=== PATIENT | female | born 1940 | race Caucasian/White ===

== ENCOUNTER 2022-01-02 15:17 | Inpatient (IN) | payer OTHER, MEDICARE, SELFPAY ==
[2022-01-02] VITALS (8 sets, daily range): BP systolic 119–193; BP diastolic 63–84; PULSE 76–94; RESP 16–24; TEMP 36.2–36.7; O2SAT 94–100; BMI 23.9; BMI 24.6
--- NOTE | 2022-01-02 15:55 | CRLHL7_ITS ---
For Patients: As a result of the Century Cures Act, medical imaging exams and procedure reports are released immediately into your electronic medical record. You may view this report before your referring provider. If you have questions, please contact your health care provider. HISTORY: Fall. Left hip pain. TECHNIQUE: AP pelvis and lateral view left hip. COMPARISON: No prior. FINDINGS: On the lateral film, there appears to be a dorsally impacted fracture of the left femoral head-neck junction. This is not definitively confirmed on the AP pelvis view, however. There is no significant hip joint space narrowing. Degenerative changes of the sacroiliac joints and within the lower lumbar spine. Vascular calcifications. IMPRESSION: On the lateral view, there appears to be a displaced / impacted fracture of the left femoral head-neck junction though this is not definitively confirmed on the AP pelvic view. If clinical exam findings are equivocal, a CT could be obtained for further evaluation. Dictated by Ac Clark MD @ 01/02/2022 5:40:57 PM Dictated by: Ac Clark MD @ 01/02/2022 17:41:04 (Electronically Signed)
--- NOTE | 2022-01-02 15:55 | CRLHL7_ITS ---
For Patients: As a result of the Cures Act, medical imaging exams and procedure reports are released immediately into your electronic medical record. You may view this report before your referring provider. If you have questions, please contact your health care provider. HISTORY: Fall. TECHNIQUE: Three views of the left wrist. COMPARISON: No prior. FINDINGS: There is an acute dorsally impacted fracture of the distal left radius with resultant dorsal tilt of distal articular surface. Fracture likely subtly extends to the distal articular surface where there is minimal displacement. No acute distal ulnar fracture. 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 IMPRESSION: Acute dorsally impacted fracture of the distal left radius with dorsal tilt of the distal articular surface. Dictated by Ac Clark MD @ 01/02/2022 5:38:08 PM Dictated by: Ac Clark MD @ 01/02/2022 17:38:10 (Electronically Signed)
--- NOTE | 2022-01-02 16:19 | ED.FALL ---
HPI - Fall General Chief Complaint: Fall/Minor Trauma Stated Complaint: Leg cramping Time Seen by Provider: 01/02/22 15:24 Source: patient and family Limitations: no limitations History of Present Illness HPI Narrative: Patient presents with her daughter after a witnessed fall on a curb. Fall was from standing height onto the sidewalk, landing on her outstretched left wrist and then left hip, she did lightly hit her head on the ground but denies any loss of consciousness or neurological change. She has ongoing issues with cramps in her legs which she states have been worked up by multiple specialists. She states that these cramps frequently and when the cramps today, it caused her to lose her footing suddenly and fall. She notes no neurological change. There have been no fevers, no recent signs of illness. She states that the pain is located in the posterior left hip and is constant. She cannot bear weight or ambulate on it. Pain in the left wrist is at the ulnar styloid area, no prior history of fracture to these areas. Has not tried taking any medication to help with her symptoms. Denies any cardiac symptoms, no chest pain, no dyspnea contributing to her symptoms. She is prone to urinary tract infections but takes Keflex prophylactically, denies any dizziness or symptoms of current infection. She is a type 1 diabetic, denying any hypoglycemia. Reports good compliance with her insulin as well. She has a notable history of coronary artery disease having had stents placed in March of this past year. No recent complications. She does take Plavix and denies any missed doses but no other anticoagulant. There are no recent provider notes to review. She states her past medical history is most notable for diabetes, hypertension, coronary artery disease and recurrent UTI. Medications reviewed, Plavix, Basaglar insulin and Humalog, amlodipine and daily Keflex for UTI prophylaxis. Surgical history is notable for coronary stent placement. Socially, she denies any other pertinent travel or illness exposure. Related Data Home Medications Medication Instructions Recorded Confirmed cephalexin .ROUTE 01/02/22 clopidogrel 75 mg tablet (Plavix) 75 mg PO DAILY 01/02/22 01/02/22 insulin lispro .ROUTE 01/02/22 Allergies Allergy/AdvReac Type Severity Reaction Status Date / Time Sulfa (Sulfonamide Allergy Intermediate Hives Verified 01/02/22 15:33 Antibiotics) Review of Systems Narrative: R was notable for the musculoskeletal symptoms as described above. Otherwise denies any other generalized, cardiovascular, respiratory, GI, urinary, skin, neurological or mental health changes. [facility] Medical History CAD (coronary artery disease) Diabetes mellitus type 1 Hypertension Surgical History S/P arterial stent Social History Smoking Status: Never smoker Do you use any of these nicotine containing products: None Second hand tobacco smoke exposure: No How often do you have a drink containing alcohol: never AUDIT-C Alcohol total score: 0 Non-prescribed substance use: denies use Exam Const: Vital Signs, click to edit/add: Vital Signs - 24 hr 01/02/22 15:26 01/02/22 16:30 01/02/22 17:04 Temperature 97.1 F L Pulse Rate [Pulse Oximeter] 76 94 77 Respiratory Rate 18 22 24 Blood Pressure [Ri ght Upper Arm] 155/63 H 119/72 169/67 H Pulse Oximetry 100 94 99 Oxygen Delivery Me thod Room Air Room Air Documenting provider has reviewed patient's vital signs: yes Common normals: no apparent distress and alert General appearance: cooperative and well kempt Orientation/consciousness: Yes awake HENMT: Common normals: normocephalic, head/scalp atraumatic and hearing grossly normal bilaterally Head and scalp: normocephalic and atraumatic Mouth: oral and palatal mucosa normal Throat: posterior oropharynx normal Eye: Common normals: EOMs intact bilaterally, conjunctivae normal and no scleral icterus General eye: normal appearance of both eyes Conjunctiva: conjunctiva(e) normal Neck & C-Spine: Common normals: full ROM and no lymphadenopathy Resp: Common normals: normal respiratory effort and clear to auscultation bilaterally Auscultation: clear to auscultation bilaterally Cardio: Common normals: regular rate, regular rhythm, S1 normal heart sound and peripheral pulses 2+ throughout Rate: regular rate Rhythm: regular rhythm Heart sounds: S1 normal Peripheral pulses: pulses 2+ throughout GI: Common normals: Normal to inspection, nondistended, normoactive bowel sounds present, soft to palpation, non-tender and no hepatosplenomegaly Palpation: soft and no hepatosplenomegaly : Other: No tenderness to palpation of the pelvis. Back & Pelvis: Other: Tenderness to palpation of external hip. No shortening or abnormal rotation of leg. The left wrist is tender to palpation with swelling at the distal radius. No significant deformity. Good radial pulses with normal capillary refill in the fingers. Can move all fingers on the left side with no difficulty. Neuro: Sensorium/orientation: awake and alert Speech: speech normal Motor exam: no tremor noted Psych: Common normals: speech normal Appearance: well kempt Attitude: engaged Activity/motor behavior: appropriate eye contact Speech: normal speech Mood and affect: anxious (, mild but with good insight.) Memory/cognition: memory grossly intact Skin: Narrative: Chronic appearing bruising to left foot and ankle, family agrees that this is chronic. No open lacerations. Course Vital Signs Vital signs: Initial Vital Signs Temperature 97.1 F L 01/02/22 15:26 Temperature Source Temporal Artery Scan 01/02/22 15:26 Pulse Rate 76 01/02/22 15:26 Respiratory Rate 18 01/02/22 15:26 Blood Pressure 155/63 H 01/02/22 15:26 Blood Pressure Mean 93 01/02/22 15:26 Pulse Oximetry 100 01/02/22 15:26 Oxygen Delivery Method 01/02/22 15:26 Vital Signs Temperature 97.1 F L 01/02/22 15:26 Pulse Rate 76 01/02/22 15:26 Respiratory Rate 18 01/02/22 15:26 Blood Pressure 155/63 H 01/02/22 15:26 Pulse Oximetry 100 01/02/22 15:26 Oxygen Delivery Method 01/02/22 15:26 Temperature 97.1 F L 01/02/22 15:26 Pulse Rate 77 01/02/22 17:04 Respiratory Rate 24 01/02/22 17:04 Blood Pressure 169/67 H 01/02/22 17:04 Pulse Oximetry 99 01/02/22 17:04 Oxygen Delivery Method 01/02/22 17:04 MDM - Fall MDM Narrative Medical decision making narrative: Family is very fixated on her chronic muscle cramps, but I am concerned that there is a greater underlying pathology causing her distress today. She was initially given hydrocodone for pain, this did not get her better quickly enough for the family's liking and she was given 0.2 of Dilaudid. They requested a muscle relaxer, I discussed the risks and benefits of each extensively and how often the side effects are more bothersome than the muscle cramps, they would like to try this. A trial of 5 mg of Flexeril is ordered. Her pain really seems under proportion to clinical exam. I do examine the x-ray and there was certainly a fracture of the left wrist but there is also something possibly impacted on the left hip. I recommend a CT scan. The family was in agreement to this though they would like to focus more on the leg cramps. She has some mild hyponatremia that I suspect is chronic and ongoing, is not taking a thiazide I do not think that it is contributing to her symptoms today. CT scan of the pelvis does show an impacted left hip fracture. Will be contacting orthopedic team. Update 7:00 p.m.: Splint applied to left upper extremity due to fractured wrist. Well tolerated. Admission discuss due to hip fracture, may benefit from surgical intervention. Unable to ambulate, will need PT, OT and disposition plan, but would likely benefit from surgery. Orthopedic team agreeable to admission and consult in morning. Dr. Oneal and accepting of admission. Will give additional dose of hydrocodone prior to transport. Medical Records Attestation: I reviewed the patient's medical records. Lab Data Attestation: I reviewed the patient's lab results. Lab results narrative: Mild hyponatremia likely secondary to hyperglycemia, had recent corticosteroid injection in shoulder Labs: Lab Results 01/02/22 01/02/22 01/02/22 Range/Units 16:11 16:11 16:11 WBC 11.05 H (4.50-11.00) K/uL RBC 3.92 L (4.00-5.20) m/uL Hgb 12.4 (12.0-16.0) gm/dL Hct 37.0 (33.0-51.0) % MCV 94 (80-100) fL MCH 32 (26-34) pg MCHC 34 (32-36) gm/dL RDW Coeff of Mehran 14.8 (11.5-15.5) % Plt Count 184 (140-440) K/uL Neut % (Auto) 80.9 H (42.0-72.0) % Lymph % (Auto) 10.8 L (20-44) % Gosper % (Auto) 7.4 (0.0-11.0) % Eos % (Auto) 0.0 (0.0-7.0) % Baso % (Auto) 0.1 (0.0-3.0) % Neut # (Auto) 8.90 H (1.7-7.0) K/uL Lymph # (Auto) 1.20 (0.90-2.90) K/uL Gosper # (Auto) 0.80 (0.00-0.90) K/UL Eos # (Auto) 0.00 (0.00-0.50) K/uL Baso # (Auto) 0.00 (0.00-0.30) K/uL Abs Immat Gran (auto) 0.09 (0.00-0.30) K/uL Sodium 132 L (135-149) mmol/L Potassium 3.7 (3.6-5.1) mmol/L Chloride 99 (96-114) mmol/L Carbon Dioxide 23 (20-32) mmol/L BUN 21 (7-30) mg/dL Creatinine 1.0 (0.5-1.5) mg/dL Estimated Creat Clear 41.45 Estimated GFR 56 ml/min Glucose 169 H (60-115) mg/dL Calcium 9.7 (8.4-10.6) mg/dL Magnesium 1.8 (1.5-2.6) mg/dL POC Troponin I 0.01 (0.01-0.04) ng/ml Discharge Plan Discharge Clinical Impression: Closed left hip fracture, Fracture of wrist Patient Disposition: Admitted As Inpatient Prescriptions: No Action cephalexin [Keflex] .ROUTE insulin lispro [Humalog U-100 Insulin] .ROUTE clopidogrel [Plavix] 75 mg tablet 75 mg PO DAILY Follow Up/Referrals: Provider,Not a Local [Primary Care Provider] -
[2022-01-02 16:25] LABS: Basophils Percent Auto 0.1 % (0.0-3.0); Hemoglobin* 12.4 gm/dL (12.0-16.0); Immature Granulocytes Abs Auto 0.09 K/uL (0.00-0.30); Lymphocytes Percent Auto 10.8 % (20-44); Mean Corpuscular HGB Conc 34 gm/dL (32-36); Mean Corpuscular Hemoglobin 32 pg (26-34); Mean Corpuscular Volume 94 fL (80-100); Monocytes Percent Auto 7.4 % (0.0-11.0); Neutrophils Percent Auto 80.9 % (42.0-72.0); Platelet Count* 184 K/uL (140-440); RDW Coefficient of Variation % 14.8 % (11.5-15.5); Red Blood Count 3.92 m/uL (4.00-5.20); White Blood Count* 11.05 K/uL (4.50-11.00)
[2022-01-02 16:29] LABS: Slide Review Reflex No
[2022-01-02] MEDS: HYDROCODONE-ACETAMIN 5-325 MG 1 TAB PO ×2 (16:43→19:28)
[2022-01-02 16:46] LABS: Chloride* 99 mmol/L (96-114); Potassium* 3.7 mmol/L (3.6-5.1); Sodium* 132 mmol/L (135-149)
[2022-01-02 16:49] LABS: Blood Urea Nitrogen* 21 mg/dL (7-30); Carbon Dioxide* 23 mmol/L (20-32); Est. Creatinine Clearance* 41.45; Estimated Glomerular Filt Rate 56 ml/min
[2022-01-02 16:50] LABS: Calcium* 9.7 mg/dL (8.4-10.6); Glucose* 169 mg/dL (60-115); Magnesium* 1.8 mg/dL (1.5-2.6)
[2022-01-02] MEDS: HYDROmorphone 0.5 mg/0.5 ml inj 0.2 MG IVP (16:50)
[2022-01-02 16:59] LABS: Troponin, Point-of-Care* 0.01 ng/ml (0.01-0.04)
--- NOTE | 2022-01-02 17:05 | ED.NURSE ---
was having cramping of her legs and and arms. was yelling out and hyperventilating. daughter was insistant to give her something more. dr etienne did not want to see again. did give dilaudid 0.2 mg that did help her. is quiet now. was incont of urine.
[2022-01-02] MEDS: CYCLOBENZAPRINE HCL 10 MG TABLET 5 MG PO (17:43)
--- NOTE | 2022-01-02 17:44 | CRLHL7_ITS ---
For Patients: As a result of the Cures Act, medical imaging exams and procedure reports are released immediately into your electronic medical record. You may view this report before your referring provider. If you have questions, please contact your health care provider. INDICATION: Fall, injury and pain. TECHNIQUE: CT pelvis without contrast. COMPARISON: None. FINDINGS: Bones: Acute mildly comminuted and angulated fracture in the subcapital region of the left femoral neck. No other fracture no dislocation. Joints: Unremarkable. Soft tissues: Unremarkable. IMPRESSION: Acute fracture in the subcapital region of the left femoral neck. Please note that all CT scans at this facility use dose modulation, iterative reconstruction, and/or weight-based dosing when appropriate to reduce radiation dose to as low as reasonably achievable. Dictated by Yvan Kapoor MD @ 01/02/2022 7:05:30 PM (Electronically Signed)
--- NOTE | 2022-01-02 18:28 | ED.NURSE ---
dr etienne in to explain plan and findings. ciara pleitez aware of likely admission.
[2022-01-02 19:23] LABS: SARS PCR* Negative SARS-CoV-2 (Negative)
[2022-01-02] MEDS: HYDROmorphone 0.5 mg/0.5 ml inj IVP ×2 (19:38→22:28)
--- NOTE | 2022-01-02 21:02 | PM.IMHP1 ---
Hospitalist- H&P: TAMEKA History of Present Illness Date Seen: 01/02/22 Chief complaint: Leg cramping Narrative: Roz Cavanaugh is a 81 year old female presented to the emergency room after a fall this afternoon in [facility]. Patient lives in [place], was visiting town today with her daughter, and was stepping up on a curb when she developed a terrific leg cramp, causing her to fall on her left side. After the fall, she was unable to bear weight on her left lower extremity and noted a painful left wrist. ED course and findings: - impacted fracture of distal left radius - fracture of left femoral neck in the subcapital region - intermittent spasms of lower extremities, quite painful - ED physician reviewed case with Orthopedic surgery team, who plan to see patient in the morning - no concerning lab findings Patient's medical history includes: - CAD (NSTEMI in March of 2021, stented x5). She completed a course of cardiac rehab in currently walks 30+ minutes per day without chest pain or dyspnea. - chronic leg cramps. She has noted these for the past 3-4 years, and they have significantly worsened in the last 3 weeks. She is waking up multiple times a night with leg cramps, and they contributed to her fall today. She has seen a multitude of specialists for this and has made many medication changes without much relief. Magnesium and potassium were normal in the emergency room. - type 1 diabetes mellitus (diagnosed at age 38, initially as type 2. She is fully reliant on insulin, last A1c 6.9). 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 She does not have regular follow-up with oncology for this. - other comorbidities include Raynaud's phenomenon, GERD, pernicious anemia, recurrent UTIs for which she is on daily Keflex, and hypothyroidism. - Pat has had multiple surgeries (knee replacement, appendectomy, tonsillectomy, shoulder surgery) in the past without any history of anesthetic complications. Patient has 3 grown daughters, daughter Divya is primary contact. Her daughters would share medical decision-making capabilities if needed. Pat requests full code status. She is and lives independently in an apartment within a senior housing [facility]. Pat is a never smoker, non-ETOH user. 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 She has received four COVID vaccines. Review of Systems Status of ROS: Reports: 10 or more systems reviewed and unremarkable except as noted in History and below Narrative: Worsening of leg cramps as noted above. No chest pain, shortness of breath, headache, or GI symptoms. [facility] Medical History (Updated 01/02/22 @ 22:22 by Suly Oneal MD) CAD (coronary artery disease) Diffuse large B cell lymphoma Hypertension Hypothyroidism Leg cramps Neuropathy associated with endocrine disorder Pernicious anemia Recurrent UTI Type 1 diabetes mellitus Surgical History S/P arterial stent Social History Smoking Status: Never smoker Do you use any of these nicotine containing products: None Second hand tobacco smoke exposure: No How often do you have a drink containing alcohol: never AUDIT-C Alcohol total score: 0 Non-prescribed substance use: denies use Meds Home Medications and Allergies Home Medications Medication Instructions Recorded Confirmed Type amlodipine 5 mg tablet 5 mg PO DAILY 01/02/22 01/02/22 History cephalexin 250 mg PO DAILY 01/02/22 01/02/22 History clopidogrel 75 mg tablet (Plavix) 75 mg PO DAILY 01/02/22 01/02/22 History insulin glargine 100 unit/mL (3 8 unit subcut HS 01/02/22 01/02/22 History mL) subcutaneous pen (Lantus Solostar U-100 Insulin) insulin lispro 4 unit subcut TID 01/02/22 01/02/22 History levothyroxine 175 mcg tablet mcg 01/02/22 History Allergies Allergy/AdvReac Type Severity Reaction Status Date / Time Sulfa (Sulfonamide Allergy Intermediate Hives Verified 01/02/22 15:33 Antibiotics) Exam Narrative: Exam Narrative: GEN: Alert and oriented, answering questions appropriately. Does appear to be in pain but nontoxic HEENT: Normal external ears, EOMIs bilaterally, no scleral icterus CV: RRR, No concerning murmurs, rubs, or gallops. Normal in symmetric peripheral pulses noted in all 4 extremities R: LCTA bilaterally without concerning wheezing, rales, or rhonchi Ext: wwp, no concerning edema. Left wrist splinted by ED physician Skin: No concerning skin lesions or rashes on exposed skin Neuro: Nonfocal, no resting tremor Psych: Appropriate Const: Vital Signs, click to edit/add: Vital Signs - 24 hr 01/02/22 15:26 01/02/22 16:30 01/02/22 17:04 Temperature 97.1 F L Pulse Rate [Pulse Oximeter] 76 94 77 Respiratory Rate 18 22 24 Blood Pressure [Ri ght Upper Arm] 155/63 H 119/72 169/67 H Pulse Oximetry 100 94 99 Oxygen Delivery Me thod Room Air Room Air 01/02/22 19:40 Temperature Pulse Rate [Pulse Oximeter] 90 Respiratory Rate 22 Blood Pressure [Ri ght Upper Arm] 153/84 H Pulse Oximetry 99 Oxygen Delivery Me thod Room Air Hospitalist - H&P: Result Labs Labs: Short CBC 01/02/22 Range/Units 16:11 WBC 11.05 H (4.50-11.00) K/uL Hgb 12.4 (12.0-16.0) gm/dL Hct 37.0 (33.0-51.0) % Plt Count 184 (140-440) K/uL BMP 01/02/22 16:11 Sodium 132 L Potassium 3.7 Chloride 99 Carbon Dioxide 23 BUN 21 Creatinine 1.0 Glucose 169 H Calcium 9.7 Assessment and Plan Assessment and plan (1) Closed left hip fracture: Status: Acute Assessment and Plan: Admit, pain control. Reviewed case with Orthopedic surgery team. Patient will likely need surgical repair. She will be made NPO after midnight, will administer D5 in her IVFs overnight given type 1 diabetic status. Given her comorbidities, I called and discussed the case with on-call hazmat truck driver at [place] (Dr. Sushant Vincent), who did not recommend any further preoperative evaluation. Patient is > 6 months out from PCI; thus, her Plavix could be held for 2-3 days if needed. She has no chest pain or dyspnea and is active daily. Her comorbidities are optimized at this time. PT and OT have been consulted, will likely need SNF placement upon discharge given wrist and hip fractures, age, and comorbidities. (2) Fracture of wrist: Status: Acute (3) Leg cramps: Status: Acute Assessment and Plan: Chronic and worsening, source unclear. Electrolytes within normal limits in the emergency room. Patient has seen multiple specialists as an outpatient for this. We will trial gabapentin to see if this is helpful for symptoms; will trial other treatments as tolerated. (4) Recurrent UTI: Problem comment: On daily Keflex as an outpatient. Status: Acute (5) Type 1 diabetes mellitus: Status: Acute Assessment and Plan: Continue home insulin dosing, Accu-Cheks. (6) Hypothyroidism: Status: Acute (7) CAD (coronary artery disease): Problem comment: NSTEMI 03/2021 Status: Acute Plan Per above. Would restart Plavix as soon as possible postoperatively, pending bleeding risk.
[2022-01-02] MEDS: LORazepam 2 MG/ML inj 0.5 MG IVP ×2 (21:03→23:11)
[2022-01-02] MEDS: GABAPENTIN 100 MG CAPSULE PO (22:07)
[2022-01-02] MEDS: 5 % DEXTROSE/0.9% SOD CHLORIDE 1,000 ML 125 ML IV (22:13)
[2022-01-03] VITALS (26 sets, daily range): BP systolic 92–150; BP diastolic 43–71; PULSE 55–76; RESP 14–18; TEMP 35.7–36.6; O2SAT 92–98
[2022-01-03] MEDS: SODIUM CHLORIDE 0.9 % (FLUSH) 10 ML SYRINGE IVF ×2 (01:35→06:08)
[2022-01-03] MEDS: LORazepam 2 MG/ML inj 0.5 MG IVP ×2 (01:35→06:09)
[2022-01-03] MEDS: HYDROmorphone 0.5 mg/0.5 ml inj IVP (02:55)
[2022-01-03] MEDS: 5 % DEXTROSE/0.9% SOD CHLORIDE 1,000 ML 125 ML IV (06:09)
[2022-01-03 07:01] LABS: Basophils Absolute Auto 0.01 K/uL (0.00-0.30); Basophils Percent Auto 0.1 % (0.0-3.0); Hematocrit 34.2 % (33.0-51.0); Hemoglobin* 11.5 gm/dL (12.0-16.0); Immature Granulocytes Abs Auto 0.01 K/uL (0.00-0.30); Mean Corpuscular HGB Conc 34 gm/dL (32-36); Mean Corpuscular Hemoglobin 32 pg (26-34); Mean Corpuscular Volume 94 fL (80-100); Monocytes Percent Auto 8.3 % (0.0-11.0); Neutrophils Percent Auto 83.5 % (42.0-72.0); Platelet Count* 147 K/uL (140-440); Red Blood Count 3.64 m/uL (4.00-5.20); White Blood Count* 7.14 K/uL (4.50-11.00)
[2022-01-03 07:11] LABS: Slide Review Reflex No
[2022-01-03 07:14] LABS: Chloride* 98 mmol/L (96-114); Potassium* 4.2 mmol/L (3.6-5.1); Sodium* 130 mmol/L (135-149)
[2022-01-03 07:17] LABS: Blood Urea Nitrogen* 14 mg/dL (7-30); Carbon Dioxide* 25 mmol/L (20-32); Creatinine* 0.7 mg/dL (0.5-1.5); Est. Creatinine Clearance* 41.45; Estimated Glomerular Filt Rate 86 ml/min
[2022-01-03 07:18] LABS: Calcium* 8.6 mg/dL (8.4-10.6); Glucose* 329 mg/dL (60-115)
--- NOTE | 2022-01-03 07:38 | PC.NURSE ---
PT ARRIVED TO FLOOR @2026 TO ROOM CCU2. PT ACCOMPANIED BY DAUGHTER- DAKOTAH. PT CRYING OUT IN PAIN. PT HAVING CRAMPS/SPASMS TO BLE (CALF MUSCLES). DAUGHTER, HOUSE SUP AND NURSE MASSAGING CALVES. CALVES WERE HARD; MUSCLE FELT CONTRACTED. PT AND DGTR STATE DILAUDID GIVEN IN ED DID NOT HELP PAIN. PRN ATIVAN ADMINISTERED WITH SOME RELIEF. PT HAS IMPLANTED GLUCOMETER?TO TAKE BLOOD SUGAR CHECKS. EKG YIELDED NSR WITH LEFT BBB. PT ON TELE. PT DAUGHTER STAYED NIGHT AT PT BEDSIDE (HELPFUL IN MASSAGING CALF MUSCLES WHEN SPASMING AND ALERTING NURSE). PT SYSTOLIC BP ELEVATED 190s AND 180s. ALL OTHER VS ARE STABLE ON RA. MARTINO PLACED WITHOUT ISSUE; 1350ML OF CLEAR, STRAW-COLORED URINE.
--- NOTE | 2022-01-03 07:44 | CRLHL7_ITS ---
For Patients: As a result of the Cures Act, medical imaging exams and procedure reports are released immediately into your electronic medical record. You may view this report before your referring provider. If you have questions, please contact your health care provider. Indication: Postop Technique: AP hip centered pelvis and lateral view left hip Findings/Impression: Hardware from a left bipolar hip arthroplasty is in satisfactory position. Bone alignment is normal. No sign of acute fracture. Postop changes are within normal limits. Dictated by Mayo Stephen MD @ 01/04/2022 9:11:55 AM (Electronically Signed)
--- NOTE | 2022-01-03 07:45 | P.ORCN_ITS ---
History of Present Illness HPI Date Seen: 01/03/22 Chief complaint: Leg cramping Narrative: Roz is a pleasant 81-year-old female. She has very difficult time with hearing. Her daughter is present today and provides nearly all of the history, Primarily due to the difficulty hearing. The patient was ambulating on the afternoon of 01/02/2022 without a walker (which is typical), but unfortunately experienced a leg cramp. This is something she gets frequently. This causes her to stumble and she ended up falling while walking up/ down a curb. She landed primarily on her left hip and left wrist. This cause significant pain. Unable to bear weight and difficulty with use of the left hand. She presented [facility]. X-rays were obtained revealed a left femoral neck fracture that was displaced. Also revealed a left distal radius fracture that is displaced. She was admitted to the hospital and orthopedics was consult accordingly. She continues to have sharp pain in both regions. Worse with any motion or deep palpation. Relieved with rest. No numbness or tingling reported at this time. Review of Systems Narrative: currently no fevers or chills. No numbness or tingling reported. No chest pain or shortness of breath at this time. No history of blood clotting or easy bleeding or bruising outside of the Plavix use. This is related to cardiac procedure 03/2021. She is hard of hearing. She has hearing aids. No abdominal pain or vomiting recently. [facility] Medical History CAD (coronary artery disease) Diffuse large B cell lymphoma Hypertension Hypothyroidism Leg cramps Neuropathy associated with endocrine disorder Pernicious anemia Recurrent UTI Type 1 diabetes mellitus Surgical History S/P arterial stent Social History Highest level of school completed/degree received: some college, no degree Smoking Status: Never smoker Do you use any of these nicotine containing products: None Second hand tobacco smoke exposure: No How often do you have a drink containing alcohol: never AUDIT-C Alcohol total score: 0 Non-prescribed substance use: denies use Caffeine: Yes (2 CUPS OF COFFEE/DAILY) service: No Meds Home Medications and Allergies Home Medications Medication Instructions Recorded Confirmed Type amlodipine 5 mg tablet 5 mg PO DAILY 01/02/22 01/02/22 History cephalexin 250 mg PO DAILY 01/02/22 01/02/22 History clopidogrel 75 mg tablet (Plavix) 75 mg PO DAILY 01/02/22 01/02/22 History insulin glargine 100 unit/mL (3 8 unit subcut HS 01/02/22 01/02/22 History mL) subcutaneous pen (Lantus Solostar U-100 Insulin) insulin lispro 4 unit subcut TID 01/02/22 01/02/22 History levothyroxine 175 mcg tablet mcg 01/02/22 History Allergies Allergy/AdvReac Type Severity Reaction Status Date / Time Sulfa (Sulfonamide Allergy Intermediate Hives Verified 01/02/22 15:33 Antibiotics) Ortho Exam Narrative Exam Narrative: Exam left hip shows no erythema, induration, or other cutaneous changes. She is painful about the left groin/left hip with any range of motion or with knee motion. This comes in the form of moaning and wincing. Distally she has palpable DP and PT pulse. Sensation intact all 5 dermatomes left lower extremity to pain. Difficult to tell on light touch again as the patient does not fully engaged in the interview today. Left wrist exam shows a short-arm splint to be in place. The fingers are pink, warm, brisk cap refill. Sensation again intact all 5 dermatomes left upper extremity to pain for the same reason as above. Motor exam appears to be intact all 5 myotomes as well. Const Vital Signs, click to edit/add: Vital Signs - 24 hr 01/02/22 15:26 01/02/22 16:30 01/02/22 17:04 Temperature 97.1 F L Pulse Rate Pulse Rate [Pulse Oximeter] 76 94 77 Respiratory Rate 18 24 Blood Pressure [Right Arm] Blood Pressure [Right Upper Arm] 155/63 H 119/72 169/67 H Pulse Oximetry 100 94 99 Oxygen Delivery Method Room Air Room Air 01/02/22 19:40 01/02/22 20:58 01/02/22 20:58 Temperature 97.8 F 97.8 F Pulse Rate Pulse Rate [Pulse Oximeter] 90 80 80 Respiratory Rate 22 16 16 Blood Pressure [Right Arm] 193/78 H 193/78 H Blood Pressure [Right Upper Arm] 153/84 H Pulse Oximetry 99 95 95 Oxygen Delivery Method Room Air Room Air Room Air 01/02/22 20:58 01/02/22 21:50 01/02/22 23:00 Temperature Pulse Rate 79 Pulse Rate [Pulse Oximeter] 80 Respiratory Rate 16 16 Blood Pressure [Right Arm] Blood Pressure [Right Upper Arm] Pulse Oximetry 95 Oxygen Delivery Method Room Air 01/02/22 23:15 01/03/22 03:00 Temperature 98.0 F Pulse Rate Pulse Rate [Pulse Oximeter] 86 Respiratory Rate 18 18 Blood Pressure [Right Arm] 185/75 H Blood Pressure [Right Upper Arm] Pulse Oximetry 99 Oxygen Delivery Method Room Air Room Air Results Labs Labs: Laboratory Results - last 48 hr 01/02/22 01/02/22 01/02/22 16:11 16:11 16:11 WBC 11.05 H RBC 3.92 L Hgb 12.4 Hct 37.0 MCV 94 MCH 32 MCHC 34 RDW Coeff of Mehran 14.8 Plt Count 184 Neut % (Auto) 80.9 H Lymph % (Auto) 10.8 L [place] % (Auto) 7.4 Eos % (Auto) 0.0 Baso % (Auto) 0.1 Neut # (Auto) 8.90 H Lymph # (Auto) 1.20 [place] # (Auto) 0.80 Eos # (Auto) 0.00 Baso # (Auto) 0.00 Abs Immat Gran (auto) 0.09 Sodium 132 L Potassium 3.7 Chloride 99 Carbon Dioxide 23 BUN 21 Creatinine 1.0 Estimated Creat Clear 41.45 Estimated GFR 56 Glucose 169 H Calcium 9.7 Magnesium 1.8 TSH SARS-CoV-2 (PCR) POC Troponin I 0.01 01/02/22 01/02/22 01/03/22 16:11 18:41 06:33 WBC 7.14 RBC 3.64 L Hgb 11.5 L Hct 34.2 MCV 94 MCH 32 MCHC 34 RDW Coeff of Mehran 15.0 Plt Count 147 Neut % (Auto) 83.5 H Lymph % (Auto) 8.0 L [place] % (Auto) 8.3 Eos % (Auto) 0.0 Baso % (Auto) 0.1 Neut # (Auto) 6.00 Lymph # (Auto) 0.60 L [place] # (Auto) 0.60 Eos # (Auto) 0.00 Baso # (Auto) 0.01 Abs Immat Gran (auto) 0.01 Sodium Potassium Chloride Carbon Dioxide BUN Creatinine Estimated Creat Clear Estimated GFR Glucose Calcium Magnesium TSH 1.870 SARS-CoV-2 (PCR) Negative SARS-CoV-2 POC Troponin I 01/03/22 06:33 WBC RBC Hgb Hct MCV MCH MCHC RDW Coeff of Mehran Plt Count Neut % (Auto) Lymph % (Auto) [place] % (Auto) Eos % (Auto) Baso % (Auto) Neut # (Auto) Lymph # (Auto) [place] # (Auto) Eos # (Auto) Baso # (Auto) Abs Immat Gran (auto) Sodium 130 L Potassium 4.2 Chloride 98 Carbon Dioxide 25 BUN 14 Creatinine 0.7 Estimated Creat Clear 41.45 Estimated GFR 86 Glucose 329 H Calcium 8.6 Magnesium TSH SARS-CoV-2 (PCR) POC Troponin I Diagnostic results Additional Comments: AP pelvis and cross-table lateral views left hip ordered by a different physician but reviewed by me. This demonstrates left displaced femoral neck fracture seen best on the cross-table lateral radiograph. [place] anterior angulation. Otherwise, joint space appears well preserved. CT scan of the pelvis and left hip also ordered by a different physician but reviewed by me. This also shows the displaced left femoral neck fracture In the subcapital regionas noted above. three views of the left wrist ordered read the position but review any finally, also shows an acutely dorsally angulated distal radius fracture with approximately 27-20 degrees of dorsal tilt. Ulnar positive variance of 1-2 mm. There may be a subtle intra-articular component to the fracture. Incidentally, severe thumb CMC joint osteoarthrosis. Assessment and Plan Assessment and plan (1) Closed left hip fracture: Status: Acute Total time spent: Total time spent is greater than 50% in coordination of care (as documented) at patient's floor/unit and/or counseling patient: (2) Fracture of wrist: Status: Acute Total time spent: Total time spent is greater than 50% in coordination of care (as documented) at patient's floor/unit and/or counseling patient: (3) Leg cramps: Status: Acute Total time spent: Total time spent is greater than 50% in coordination of care (as documented) at patient's floor/unit and/or counseling patient: (4) Recurrent UTI: Problem comment: On daily Keflex as an outpatient. Status: Acute Total time spent: Total time spent is greater than 50% in coordination of care (as documented) at patient's floor/unit and/or counseling patient: (5) Type 1 diabetes mellitus: Status: Acute Total time spent: Total time spent is greater than 50% in coordination of care (as documented) at patient's floor/unit and/or counseling patient: (6) Hypothyroidism: Status: Acute Total time spent: Total time spent is greater than 50% in coordination of care (as documented) at patient's floor/unit and/or counseling patient: (7) CAD (coronary artery disease): Problem comment: NSTEMI 03/2021 Status: Acute Total time spent: Total time spent is greater than 50% in coordination of care (as documented) at patient's floor/unit and/or counseling patient: Plan Regarding the left hip, given the displacement, I do think surgery is indicated. This be for left hip bipolar hemiarthroplasty. Cemented. Antibiotic cement given her diabetic state. I do think surgery is prudent in the early post injury time. We will try to do this on the morning of 11/02/2021. I have spoken with her daughter, Divya at length about the pros and cons of both surgical and nonsurgical Management. We discussed risks and benefits and I believe all questions were answered. Indeed we will plan for this procedure. Regarding left wrist, I do think closed reduction with manipulation and long-arm splint application also could be beneficial. I think it can help bring support to the distal radius fracture and realignment. She will likely need a walker with a platform walker attachment to help with postoperative mobilization. Our physical therapy and occupational therapy team are fantastic; They are consulted for the patient already. Regarding the diabetes mellitus, her blood sugars this morning just prior to surgery were over 300. Insulin is planning to be administered in the perioperative time to help decrease this. We will also be closely monitored in the postoperative time to try to help control his blood sugars. Regarding coronary artery disease, cardiology team has been contacted thanks to our hospitalist. after some discussion, it was felt that the patient be safe to proceed with surgery today 11/02/2021. The gave approval for the patient to be off Plavix for 2-3 days. I would anticipate the patient will be able to resume Plavix today or tomorrow. I will also communicate with the hospitalist team regarding recommended DVT prophylaxis in the postoperative time in addition to the Joseph hose and SCDs and Plavix use.
--- NOTE | 2022-01-03 07:54 | W.PM.NB ---
Nerve Block Nerve Block Time Seen by Provider: 07:30 Date Seen: 01/03/22 Type of block requested by surgeon for post-operative analgesia: ABIGAIL/LFCN Side: left Time out performed: Yes Verification of patient name: Yes Verification of date of : Yes Site marking: site marked Name of person performing procedure: Brandon Dyson Assistants, if any: Marvin davenport CRNA Continuous monitoring Was continuous monitoring of O2 sat, B/P, quality assurance monitor, recorded every 15 minutes?: Yes Procedure Checklist: sterile prep, needles and gloves Ultrasound guided. Images saved: Yes Medications given in 5ml increments after negative aspiration: Marcaine %: 0.5 mL: 25 Needle gauge: 21 Decadron (mg): 10 Precedex (mcg): 20 Patient tolerated procedure well: Yes Additional comments: 20ml injected for ABIGAIL, 7ml injected for LFC Block Charges Block Charge (with Pro Fee): Other Periph Nerve Block Use of Ultrasound Machine for Block: Yes- US Guidance/pain block
--- NOTE | 2022-01-03 08:38 | REH.OT ---
OT/PT: Orders received, chart reviewed, noted plan for ortho surgery today. Will defer OT/PT evals until postop.
--- NOTE | 2022-01-03 09:04 | CRLHL7_ITS ---
For Patients: As a result of the Cures Act, medical imaging exams and procedure reports are released immediately into your electronic medical record. You may view this report before your referring provider. If you have questions, please contact your health care provider. Indication: Postreduction fracture Technique: Two fluoroscopic images of the left wrist. Fluoroscopic time 4.3 seconds. IMPRESSION: Fluoroscopic guidance for closed reduction of the distal radial fracture. Dictated by Mayo Stephen MD @ 01/04/2022 9:10:28 AM (Electronically Signed)
--- NOTE | 2022-01-03 09:50 | PM.ORPRC ---
Procedure Note Date of procedure: 01/03/22 Procedure: PREOPERATIVE DIAGNOSIS: 1. Left femoral neck fracture, displaced, acute, closed 2. Left distal radius fracture, dorsally angulated and shortened and dorsally displaced, intra-articular, closed, acute POSTOPERATIVE DIAGNOSIS: 1. Left femoral neck fracture, displaced, acute, closed 2. Left distal radius fracture, dorsally angulated and shortened and dorsally displaced, intra-articular, closed, acute PROCEDURE: 1. Left hip bipolar hemiarthroplasty for femoral neck fracture 2. Left distal radius fracture closed reduction with manipulation under sedation administered by anesthetic team and short-arm splint application 3. [id number] C-arm fluoroscopic imaging (less than 1 hour) and immediate interpretation by myself to assess distal radius fracture alignment SURGEON: Flo Cochran MD. CYLINDER SANDER OPERATOR: Bay Salamanca PA-C - Of note, an microbiology lab assistant was critical for this case to aid in patient positioning, tissue retraction, limb manipulation/positioning, hip reduction and dislocation, clearing of cement, and closure. ANESTHESIA: General endotracheal anesthetic EBL: 250 mL IMPLANTS: DePuy cemented [place] stem (size 6 with 127 degree neck); (+1.5) 28mm inner head diameter and 48 mm outer head diameter; 11 centralizer] COMPLICATIONS: None evident INDICATIONS: The patient is a pleasant 81-year-old female who has experienced severe left hip pain after a fall on 11/01/2021. She unfortunately tripped while trying to go up/down a curb. This caused her to land on outstretched left arm and on her left hip. Unable to bear weight. [facility]. X-rays were obtained revealed a left distal placed distal radius fracture as well as a left displaced femoral neck fracture. After medical evaluation found the patient to be in optimal condition, surgery was recommended for stabilization of the hip. DESCRIPTION OF PROCEDURE: Following a thorough discussion of risks, benefits, and alternatives consent was obtained and the left hip was marked. The patient was brought to the operating room and placed supine on the operating table. Induction of anesthesia was undertaken. They were then positioned lateral decubitus with the operative side up. 2 g IV Ancef and 1 g tranexamic acid was administered within 1 hr of incision preoperatively. Proper time-out was performed identifying proper patient, site, and procedure. The operative extremity was prepped and draped in the appropriate sterile fashion using ChloraPrep with head in neutral alignment in all bony prominences well padded and an axillary roll placed. A curvilinear longitudinal incision was made in line with the posterior 1/3rd of the greater trochanter, fairly equally divided proximal and distal to the greater trochanter tip. Sharp incision through skin and Bovie cautery through subcutaneous tissue allowed hemostasis to be achieved. The ITB band was identified, divided in line with its fibers as was the gluteal fascia. The deeper muscle fibers were bluntly divided. The greater trochanteric bursa was excised, and the short external rotators were then released from their insertion including the piriformis. These were tagged for later repair. Additionally the capsule was released in an inverted T-fashion. The fracture hematoma was immediately encountered and evacuated. Capsule was released down to the lesser trochanter. The femoral head was removed, and sized out to be approximately a 48 mm outer head. At this stage, the femoral neck was freshened with a sagittal saw with caution taken to avoid injury to the greater trochanter. The femur was prepared initially with a box osteotome and hand reamers followed by surgical broaches up to the size noted above. Various head sizes were then trialed and found to have an excellent fit/stability with the implants noted above. At this stage, thorough irrigation normal saline was performed, and cement was mixed on back table. The cement restrictor was placed deep after thorough irrigation and preparation of the femoral canal, followed by cementing, pressurizing, and stem insertion while holding it in valgus to avoid a varus position. Trial heads were again inserted and found to have excellent stability and length when compared to the contralateral lower extremities. Thus, the real heads were open, and inserted. Thorough irrigation with normal saline was then performed followed by closure of the capsule followed by the short external rotators through drill holes in the greater trochanter with #1 PDS. Thorough irrigation was again performed, and closure of the ITB band was completed with #1 Stratafix. Subcutaneous and subcuticular closure was closed with 2-O Vicryl and 4 -0 Monocryl, respectively. Dressings were applied. At this stage, the previously applied short-arm splint from the emergency room was removed. Inspection of the wrist showed mild ecchymosis. Minimal swelling. She did have some swelling at the mid forearm and proximal as that is with the splint ended. Splint also covered her MCP joints. Following splint removal, closed reduction with manipulation was performed under the anesthetic that she was previously administered. This allowed significant improvement at the distal radius alignment. It brought the distal radius out to length and helped with the angulation improvement. A short-arm splint was applied (volar dorsal) keep her MCP joints free. An intentional mold was applied to help with maintaining the improved alignment. C-arm fluoroscopic imaging was ultimately obtained to confirm on both the PA and lateral planes that the wrist fracture was in much improved alignment. Short-arm splint was applied and allowed to cure. The patient was awoken from anesthesia and transferred the PACU in stable condition. PLAN: 1. Weight bear as tolerated on the operative extremity - posterior hip precautions. 2. 23 hr perioperative antibiotics. 3. Ice. 4. PT/OT consults for ambulation assistance/mobility education - posterior hip precautions. 5. Social work consult for discharge planning. 6. Analgesics PRN 7. DVT prophylaxis with at SCDs, Joseph Crump, and Xarelto verses Plavix versus both. Will communicate with hospitalist team.
--- NOTE | 2022-01-03 09:53 | W.ANESCHARGE ---
Anesthesia Charges Start Date/Time Anesthesia Start Date: 01/03/22 Anesthesia Start Time: 07:30 Stop Date/Time Anesthesia Stop Date: 01/03/22 Anesthesia Stop Time: 09:55 Summary Emergency: Yes Extremes of Age: Over 68-CPT [id number]
--- NOTE | 2022-01-03 10:57 | SUR.PHASEI ---
patient met discharge criteria per anesthesia
--- NOTE | 2022-01-03 11:12 | P.IMPN_ITS ---
Progress Note: A&P Assessment and plan (1) Closed left hip fracture: Status: Acute (2) Fracture of wrist: Status: Acute (3) Type 1 diabetes mellitus: Status: Acute (4) CAD (coronary artery disease): Problem details: NSTEMI 03/2021 Status: Acute (5) Hypothyroidism: Status: Acute (6) Recurrent UTI: Problem details: On daily Keflex as an outpatient. Status: Acute Plan Assessment 1.? Left femoral neck fracture, displaced, acute, closed, s/p Left hip bipolar hemiarthroplasty for femoral neck fracture, EBL 250cc, General anesthesia 2.? Left distal radius fracture; s/p Left distal radius fracture closed reduction 3. Hx of hypothyroidism 4. Hx of GERD 5. Hx of type I DM 6. Hx of pernicious anemia 7. Hx of Diffuse Large B cell lymphoma 8. Hx of CAD (NSTEMI in March of 2021, stented x5) Plan -pain control, diet, dvt ppx per surgery -tenative DVT plan ok to resume plavix tonight; xarelto initiation tomorrow -PT, OT evaluation -cbc and bmp in AM -currently on ancef and keflex on hold Subjective Date Seen: 01/03/22 Interval history: patient with left femoral neck fx and distal radius fx went to surgery this morning upon return from surgery sedated and sleeping unable to obtain ROS Daughters at bedside Exam Narrative: Exam Narrative: Gen: no acute distress; sleeping HEENT: NCAT EOMI MMM CV: RRR normal s1 s2 Lungs: CTAB Abd: Soft, nt MSK: Left wrist in splint : boss in place Const: Vital Signs, click to edit/add: Vital Signs - 24 hr 01/02/22 15:26 01/02/22 16:30 01/02/22 17:04 Temperature 97.1 F L Pulse Rate Pulse Rate [Pulse Oximeter] 76 94 77 Respiratory Rate 18 24 Blood Pressure Blood Pressure [Ri ght Arm] Blood Pressure [Ri ght Upper Arm] 155/63 H 119/72 169/67 H Pulse Oximetry 100 94 99 Oxygen Delivery Me thod Room Air Room Air 01/02/22 19:40 01/02/22 20:58 01/02/22 20:58 Temperature 97.8 F 97.8 F Pulse Rate Pulse Rate [Pulse Oximeter] 90 80 80 Respiratory Rate 22 16 16 Blood Pressure Blood Pressure [Ri ght Arm] 193/78 H 193/78 H Blood Pressure [Ri ght Upper Arm] 153/84 H Pulse Oximetry 99 95 95 Oxygen Delivery Me thod Room Air Room Air Room Air 01/02/22 20:58 01/02/22 21:50 01/02/22 23:00 Temperature Pulse Rate 79 Pulse Rate [Pulse Oximeter] 80 Respiratory Rate 16 16 Blood Pressure Blood Pressure [Ri ght Arm] Blood Pressure [Ri ght Upper Arm] Pulse Oximetry 95 Oxygen Delivery Me thod Room Air 01/02/22 23:15 01/03/22 03:00 01/03/22 09:50 Temperature 98.0 F 96.7 F L Pulse Rate 62 Pulse Rate [Pulse Oximeter] 86 Respiratory Rate 18 18 14 Blood Pressure 101/50 L Blood Pressure [Ri ght Arm] 185/75 H Blood Pressure [Ri ght Upper Arm] Pulse Oximetry 99 92 Oxygen Delivery Me thod Room Air Room Air Room Air 01/03/22 10:10 01/03/22 09:55 01/03/22 09:58 Temperature 96.7 F L 96.7 F L 96.7 F L Pulse Rate 57 L 55 L 61 Pulse Rate [Pulse Oximeter] Respiratory Rate 14 14 14 Blood Pressure 104/50 L 96/47 L 99/51 L Blood Pressure [Ri ght Arm] Blood Pressure [Ri ght Upper Arm] Pulse Oximetry 93 95 94 Oxygen Delivery Me thod Room Air 01/03/22 10:00 01/03/22 10:05 01/03/22 10:15 Temperature 96.7 F L 96.7 F L 96.7 F L Pulse Rate 60 60 57 L Pulse Rate [Pulse Oximeter] Respiratory Rate 14 14 14 Blood Pressure 100/48 L 100/48 L 94/43 L Blood Pressure [Ri ght Arm] Blood Pressure [Ri ght Upper Arm] Pulse Oximetry 94 94 93 Oxygen Delivery Me thod 01/03/22 10:20 01/03/22 10:25 01/03/22 10:30 Temperature 96.7 F L 96.7 F L 96.7 F L Pulse Rate 58 L 56 L 59 L Pulse Rate [Pulse Oximeter] Respiratory Rate 14 14 14 Blood Pressure 92/46 L 99/47 L 103/52 L Blood Pressure [Ri ght Arm] Blood Pressure [Ri ght Upper Arm] Pulse Oximetry 95 93 93 Oxygen Delivery Me thod 01/03/22 10:35 Temperature 96.3 F L Pulse Rate 57 L Pulse Rate [Pulse Oximeter] Respiratory Rate 14 Blood Pressure 115/57 L Blood Pressure [Ri ght Arm] Blood Pressure [Ri ght Upper Arm] Pulse Oximetry 96 Oxygen Delivery Me thod Labs Labs: Laboratory Results - last 24 hr 01/02/22 01/02/22 01/02/22 16:11 16:11 16:11 WBC 11.05 H RBC 3.92 L Hgb 12.4 Hct 37.0 MCV 94 MCH 32 MCHC 34 RDW Coeff of Mehran 14.8 Plt Count 184 Neut % (Auto) 80.9 H Lymph % (Auto) 10.8 L [place] % (Auto) 7.4 Eos % (Auto) 0.0 Baso % (Auto) 0.1 Neut # (Auto) 8.90 H Lymph # (Auto) 1.20 [place] # (Auto) 0.80 Eos # (Auto) 0.00 Baso # (Auto) 0.00 Abs Immat Gran (auto) 0.09 Sodium 132 L Potassium 3.7 Chloride 99 Carbon Dioxide 23 BUN 21 Creatinine 1.0 Estimated Creat Clear 41.45 Estimated GFR 56 Glucose 169 H Calcium 9.7 Magnesium 1.8 TSH SARS-CoV-2 (PCR) POC Troponin I 0.01 01/02/22 01/02/22 01/03/22 16:11 18:41 06:33 WBC 7.14 RBC 3.64 L Hgb 11.5 L Hct 34.2 MCV 94 MCH 32 MCHC 34 RDW Coeff of Mehran 15.0 Plt Count 147 Neut % (Auto) 83.5 H Lymph % (Auto) 8.0 L [place] % (Auto) 8.3 Eos % (Auto) 0.0 Baso % (Auto) 0.1 Neut # (Auto) 6.00 Lymph # (Auto) 0.60 L [place] # (Auto) 0.60 Eos # (Auto) 0.00 Baso # (Auto) 0.01 Abs Immat Gran (auto) 0.01 Sodium Potassium Chloride Carbon Dioxide BUN Creatinine Estimated Creat Clear Estimated GFR Glucose Calcium Magnesium TSH 1.870 SARS-CoV-2 (PCR) Negative SARS-CoV-2 POC Troponin I 01/03/22 06:33 WBC RBC Hgb Hct MCV MCH MCHC RDW Coeff of Mehran Plt Count Neut % (Auto) Lymph % (Auto) [place] % (Auto) Eos % (Auto) Baso % (Auto) Neut # (Auto) Lymph # (Auto) [place] # (Auto) Eos # (Auto) Baso # (Auto) Abs Immat Gran (auto) Sodium 130 L Potassium 4.2 Chloride 98 Carbon Dioxide 25 BUN 14 Creatinine 0.7 Estimated Creat Clear 41.45 Estimated GFR 86 Glucose 329 H Calcium 8.6 Magnesium TSH SARS-CoV-2 (PCR) POC Troponin I
[2022-01-03] MEDS: LACTATED RINGERS 1000 ML 1,000 ML 75 ML IV ×2 (12:07→16:54)
[2022-01-03] MEDS: LEVOTHYROXINE 125 MCG TABLET PO (13:12)
[2022-01-03] MEDS: CEFAZOLIN 1 GM in 0.9 % SODIUM CHLORIDE Mini-bag 100 ML IVPB ×2 (14:05→21:37)
[2022-01-03] MEDS: ACETAMINOPHEN 325 MG TABLET 650 MG PO (17:13)
--- NOTE | 2022-01-03 17:33 | PC.NURSE ---
Shift Summary: Patient returned from surgery around 11am. Alert and oriented, was on o2@2L/NC when first arrived, now on RA. Has abductor wedge between legs. Taveras cath in place and patent. Has not worked with PT/OT yet since surgery, staff not comfortable getting her up for first time and patient not tolerating movement well. Denies pain at rest but rates pain 3/10 with movement. Denies nausea, tolerating regular diet. BS earlier was 142 and patient was still NPO from surgery, insulin held at the time. BS before dinner 227, updated and gave okay to give 1400 insulin dose at dinner time. Vitals stable and WNL. Dressing over left hip dry and intact, left arm wrapped with brace. Denies pain in wrist.
[2022-01-03] MEDS: GABAPENTIN 100 MG CAPSULE PO (20:38)
[2022-01-03] MEDS: CLOPIDOGREL 75 MG TABLET PO (20:38)
[2022-01-04 03:00] VITALS: BP 156/67; PULSE 71; RESP 18; TEMP 36.6; O2SAT 96
[2022-01-04] MEDS: LACTATED RINGERS 1000 ML 1,000 ML 75 ML IV (06:04)
[2022-01-04] MEDS: LEVOTHYROXINE 125 MCG TABLET PO (06:04)
[2022-01-04] MEDS: CEFAZOLIN 1 GM in 0.9 % SODIUM CHLORIDE Mini-bag 100 ML IVPB (06:04)
[2022-01-04 07:12] LABS: Hematocrit 33.5 % (33.0-51.0); Hemoglobin* 11.2 gm/dL (12.0-16.0); Mean Corpuscular HGB Conc 33 gm/dL (32-36); Mean Corpuscular Hemoglobin 32 pg (26-34); Mean Corpuscular Volume 95 fL (80-100); Platelet Count* 145 K/uL (140-440); Red Blood Count 3.53 m/uL (4.00-5.20); White Blood Count* 11.83 K/uL (4.50-11.00)
[2022-01-04 07:23] LABS: Slide Review Reflex No
[2022-01-04 07:26] LABS: Chloride* 101 mmol/L (96-114); Potassium* 4.5 mmol/L (3.6-5.1); Sodium* 128 mmol/L (135-149)
[2022-01-04 07:29] LABS: Blood Urea Nitrogen* 16 mg/dL (7-30); Carbon Dioxide* 23 mmol/L (20-32); Creatinine* 0.7 mg/dL (0.5-1.5); Est. Creatinine Clearance* 41.45; Estimated Glomerular Filt Rate 86 ml/min; Glucose* 308 mg/dL (60-115)
[2022-01-04 07:30] LABS: Calcium* 8.8 mg/dL (8.4-10.6)
[2022-01-04 08:30] VITALS: BP 175/69; PULSE 71; PULSE 77; RESP 18; TEMP 36.3; O2SAT 98
[2022-01-04] MEDS: RIVAROXABAN 10 MG TABLET PO (09:12)
[2022-01-04] MEDS: SENNOSIDES 1 TAB TABLET 2 TAB PO ×2 (09:13→21:09)
[2022-01-04] MEDS: HYDROCODONE-ACETAMIN 5-325 MG 1 TAB PO ×5 (09:13→21:09)
[2022-01-04] MEDS: LEVOTHYROXINE 50 MCG TABLET PO (10:51)
--- NOTE | 2022-01-04 11:58 | SUR.OPER ---
Actual procedure correct in charting/documentation. Actual procedure under Implants menu listed as ACL, because case was originally scheduled incorrectly as an ACL. Verified with teletype technician.
[2022-01-04 12:00] VITALS: BP 149/54; PULSE 77; RESP 18; TEMP 36.5; O2SAT 97
--- NOTE | 2022-01-04 12:27 | PC.NURSE ---
Verified Insulin pen with KARTHIKEYAN Callejas for 12 units aspart (verbal order from Dr. Soto d/t computer issues.).
--- NOTE | 2022-01-04 12:41 | P.IMPN_ITS ---
Progress Note: A&P Assessment and plan (1) Closed left hip fracture: Problem details: Status post bipolar hip arthroplasty. Due to comorbidities including problems with leg cramps and left wrist fracture will need rehab stay before returning home Status: Acute (2) Fracture of wrist: Problem details: Using a platform walker to help with ambulation. Status: Acute (3) Leg cramps: Problem details: The cause for this is uncertain. Her description of prolonged severe whole leg pain suggests something other than uncomplicated nocturnal leg cramps. May be warranted to get outpatient evaluation for this relatively severe disabling problem. Status: Acute (4) Type 1 diabetes mellitus: Problem details: Recent poor control in part due to steroid injection but may be needing more insulin. Continue to adjust insulin here to optimize diabetes control Status: Acute (5) Hyponatremia: Problem details: Fluid restriction and monitor. Likely due to postoperative status Status: Acute (6) CAD (coronary artery disease): Problem details: NSTEMI 03/2021. Asymptomatic. Hold Plavix while on Xarelto then resume Plavix. Status: Acute (7) Hypothyroidism: Problem details: Continue replacement Status: Acute (8) Recurrent UTI: Problem details: On daily Keflex as an outpatient. Status: Acute Plan Continue in-hospital to address multiple problems listed above. Anticipate discharge to rehab center for ongoing management prior to returning home. Time Spent With Patient Total time spent: Total time spent is 50 minutes, 40 minutes in coordination of care and discussing with patient and daughter management of diabetes and leg cramps and rehab. Subjective Time Seen by Provider: 12:41 Date Seen: 01/04/22 Interval history: 81-year-old female admitted to the hospital with left hip fracture and left wrist fracture. ORIF yesterday. Postoperatively she reports doing well. Fracture pain is adequately controlled. She has no nausea or dyspnea. Blood sugars are quite high. She attributes this to a shoulder steroid injection she received 1-2 weeks ago. She does report her blood sugars have been high at home. Previously was diagnosed with diabetes type 2 for 40 years and has recently been diagnosed as diabetes type 1. Previously on metformin now on insulin alone. She and her daughter are most concerned about problems with leg cramps. Apparently her fall leading to her fracture came from a leg cramp in her right leg causing her to fall down. She reported the pain started in her hip and when all the way to her foot. She reports multiple severe daily leg cramps usually in her calves, more often on the right. These have become disabling for her during the day and awake her at night. She has never had any formal evaluation for them. She reports sometimes they are severe and last for hours. I indicated that this is atypical for usual leg cramps and may represent a different neuro muscular problem. Exam Narrative: Exam Narrative: She is alert and appears in no distress. Respirations are clear to auscult ation. Cardiovascular: S1, S2, regular rate and rhythm. Abdomen: Bowel sounds active. Abdomen is soft without tenderness or mass. Upper extremities notable for her left forearm being in a splint. She has some edema in her hand but intact sensation and good capillary refill in her left hand. Right upper extremity is normal. Lower extremities are examined appear normal. She has intact pulses and sensation though subjectively diminished sensation. No edema. She moves both feet and ankles well. Normal alignment of her feet and ankles. Const: Vital Signs, click to edit/add: Vital Signs - 24 hr 01/03/22 15:19 01/03/22 12:45 01/03/22 13:45 Temperature 97.6 F 96.7 F L 96.7 F L Pulse Rate [Pulse Oximeter] 65 61 62 Respiratory Rate 16 16 16 Blood Pressure [Ri ght Arm] 116/49 L 134/51 L 131/55 L Pulse Oximetry 98 98 98 Oxygen Delivery Me thod Room Air Nasal Cannula Room Air 01/03/22 14:45 01/03/22 15:45 01/03/22 16:45 Temperature 97.6 F 97.5 F L 97.5 F L Pulse Rate [Pulse Oximeter] 65 69 66 Respiratory Rate 16 18 18 Blood Pressure [Ri ght Arm] 116/49 L 150/64 H 144/71 H Pulse Oximetry 98 96 96 Oxygen Delivery Me thod Room Air Room Air Room Air 01/03/22 19:00 01/03/22 23:00 01/03/22 23:00 Temperature 97.7 F 97.8 F Pulse Rate [Pulse Oximeter] 76 70 70 Respiratory Rate 18 18 18 Blood Pressure [Ri ght Arm] 135/60 140/62 H Pulse Oximetry 98 98 Oxygen Delivery Me thod Room Air Room Air 01/04/22 03:00 01/04/22 08:30 01/04/22 08:30 Temperature 97.8 F 97.3 F L Pulse Rate [Pulse Oximeter] 71 71 77 Respiratory Rate 18 18 18 Blood Pressure [Ri ght Arm] 156/67 H 175/69 H Pulse Oximetry 96 98 Oxygen Delivery Me thod Room Air Room Air Documenting provider has reviewed patient's vital signs: yes Labs Labs: Laboratory Results - last 24 hr 01/04/22 01/04/22 07:04 07:04 WBC 11.83 H RBC 3.53 L Hgb 11.2 L Hct 33.5 MCV 95 MCH 32 MCHC 33 Plt Count 145 Sodium 128 L Potassium 4.5 Chloride 101 Carbon Dioxide 23 BUN 16 Creatinine 0.7 Estimated Creat Clear 41.45 Estimated GFR 86 Glucose 308 H Calcium 8.8
--- NOTE | 2022-01-04 13:46 | P.ORPN_ITS ---
Subjective Subjective Date Seen: 01/04/22 Interval history: 81-year-old female admitted to the hospital with left hip fracture and left wrist fracture. ORIF yesterday. Postoperatively she reports doing well. Fracture pain is adequately controlled. She has no nausea or dyspnea. Blood sugars are quite high. She attributes this to a shoulder steroid injection she received 1-2 weeks ago. She does report her blood sugars have been high at home. Previously was diagnosed with diabetes type 2 for 40 years and has recently been diagnosed as diabetes type 1. Previously on metformin now on insulin alone. She and her daughter are most concerned about problems with leg cramps. Appare ntly her fall leading to her fracture came from a leg cramp in her right leg causing her to fall down. She reported the pain started in her hip and when all the way to her foot. She reports multiple severe daily leg cramps usually in her calves, more often on the right. These have become disabling for her during the day and awake her at night. She has never had any formal evaluation for them. She reports sometimes they are severe and last for hours. I indicated that this is atypical for usual leg cramps and may represent a different neuro muscular problem. Ortho Exam Const Vital Signs, click to edit/add: Vital Signs - 24 hr 01/03/22 15:19 01/03/22 14:45 01/03/22 15:45 Temperature 97.6 F 97.6 F 97.5 F L Pulse Rate [Pulse Oximeter] 65 65 69 Respiratory Rate 16 16 18 Blood Pressure [Right Arm] 116/49 L 116/49 L 150/64 H Pulse Oximetry 98 98 96 Oxygen Delivery Method Room Air Room Air Room Air 01/03/22 16:45 01/03/22 19:00 01/03/22 23:00 Temperature 97.5 F L 97.7 F Pulse Rate [Pulse Oximeter] 66 76 70 Respiratory Rate 18 18 18 Blood Pressure [Right Arm] 144/71 H 135/60 Pulse Oximetry 96 98 Oxygen Delivery Method Room Air Room Air 01/03/22 23:00 01/04/22 03:00 01/04/22 08:30 Temperature 97.8 F 97.8 F Pulse Rate [Pulse Oximeter] 70 71 71 Respiratory Rate 18 18 18 Blood Pressure [Right Arm] 140/62 H 156/67 H Pulse Oximetry 98 96 Oxygen Delivery Method Room Air Room Air 01/04/22 08:30 Temperature 97.3 F L Pulse Rate [Pulse Oximeter] 77 Respiratory Rate 18 Blood Pressure [Right Arm] 175/69 H Pulse Oximetry 98 Oxygen Delivery Method Room Air Assessment and Plan Assessment and plan (1) Closed left hip fracture: Problem details: Status post bipolar hip arthroplasty. Due to comorbidities including problems with leg cramps and left wrist fracture will need rehab stay before returning home Status: Acute (2) Fracture of wrist: Problem details: Using a platform walker to help with ambulation. Status: Acute (3) Leg cramps: Problem details: The cause for this is uncertain. Her description of prolonged severe whole leg pain suggests something other than uncomplicated nocturnal leg cramps. May be warranted to get outpatient evaluation for this relatively severe disabling problem. Status: Acute (4) Type 1 diabetes mellitus: Problem details: Recent poor control in part due to steroid injection but may be needing more insulin. Continue to adjust insulin here to optimize diabetes control Status: Acute (5) Hyponatremia: Problem details: Fluid restriction and monitor. Likely due to postoperative status Status: Acute (6) CAD (coronary artery disease): Problem details: NSTEMI 03/2021. Asymptomatic. Hold Plavix while on Xarelto then resume Plavix. Status: Acute (7) Hypothyroidism: Problem details: Continue replacement Status: Acute (8) Recurrent UTI: Problem details: On daily Keflex as an outpatient. Status: Acute
--- NOTE | 2022-01-04 13:55 | PM.ORPN ---
Subjective Subjective Date Seen: 01/04/22 Principal diagnosis: Status POD1 left hip bipolar hemiarthroplasty, closed reduction left wrist Interval history: Patient reports doing well. Complaining left finger/digit swelling and stiffness. No acute events over night. No longer experiencing muscle cramping. Pain managed with scheduled /PRN medications and ice. DVT prophylaxis clopidogrel (chronic medication due to NC 03/2021), and Xarelto, bilateral knee high Joseph stockings, and SCDs. [dizzy]. Denies fevers, chills, aches, N/V, CP, SOB/SANCHEZ, tachycardia or lightheadedness. Reports bilateral leg weakness, but the right is improving. Also complains of right ankle discomfort with ankle pumps, pointing to the anterior joint line. Ortho Exam Narrative Exam Narrative: General: Well-developed, well-nourished, A&Ox 3, no apparent acute distress. Left lower extremity: -Patient appears comfortable in recliner; no apparent acute distress -Alert and oriented times 3 -Operative hip swollen; soft tissues supple; no obvious erythema. Ecchymosis minimal. Warmth appropriate -Surgical dressing clean, dry, intact; no obvious drainage, no erythematous streaking peripheral to the bandage -Bilateral calves soft and supple, tender on the left, with additional tenderness during passive, resisted foot dorsiflexion; no significant swelling, edema, erythema, discoloration, warmth, or palpable cords -2+ DP/PT pulses, intact dermatomes and myotomes distally (5/5 strength) Left Wrist: Notable swelling involving the digits; mild ecchymosis dorsum of the hand at the MCP joints Dorsal-volar short-arm splint in good position, molded appropriately Unable to make full composite fist 2+ radial pulse, pink, warm, appropriate capillary refill digits; intact dermatomes and myotomes distally (radial, ulnar, and median nerve distributions) Right Ankle: No swelling, no obvious ecchymosis or erythema. Foot/ankle supple Moderately tender to palpation tibiotalar joint line, and to palpation along the anterior tibialis tendon No pain with pronation or supination of the foot No pain with resisted plantar or dorsiflexion Stable to anterior drawer - plantar flexion and dorsiflexion Stable to manipulation - eversion and dorsiflexion; inversion and dorsiflexion 2+ Dorsalis Pedis and Posterior Tibial pulses, pink, warm and appropriate capillary refill digits; intact dermatomes and myotomes distally with 5/5 strength dorsal and plantar flexion Const Vital Signs, click to edit/add: Vital Signs - 24 hr 01/03/22 15:19 01/03/22 14:45 01/03/22 15:45 Temperature 97.6 F 97.6 F 97.5 F L Pulse Rate [Pulse Oximeter] 65 65 69 Respiratory Rate 16 16 18 Blood Pressure [Right Arm] 116/49 L 116/49 L 150/64 H Pulse Oximetry 98 98 96 Oxygen Delivery Method Room Air Room Air Room Air 01/03/22 16:45 01/03/22 19:00 01/03/22 23:00 Temperature 97.5 F L 97.7 F Pulse Rate [Pulse Oximeter] 66 76 70 Respiratory Rate 18 18 18 Blood Pressure [Right Arm] 144/71 H 135/60 Pulse Oximetry 96 98 Oxygen Delivery Method Room Air Room Air 01/03/22 23:00 01/04/22 03:00 01/04/22 08:30 Temperature 97.8 F 97.8 F Pulse Rate [Pulse Oximeter] 70 71 71 Respiratory Rate 18 18 18 Blood Pressure [Right Arm] 140/62 H 156/67 H Pulse Oximetry 98 96 Oxygen Delivery Method Room Air Room Air 01/04/22 08:30 Temperature 97.3 F L Pulse Rate [Pulse Oximeter] 77 Respiratory Rate 18 Blood Pressure [Right Arm] 175/69 H Pulse Oximetry 98 Oxygen Delivery Method Room Air Assessment and Plan Assessment and plan (1) Closed left hip fracture: Problem details: POD 1 bipolar hip arthroplasty. Due to comorbidities including problems with leg cramps and left wrist fracture will need rehab stay before returning home Status: Acute (2) Fracture of wrist: Problem details: Status post 1 day closed treatment with manipulation under anesthesia, left distal radius fracture, with dorsal angulation, and minimal ulnar positive position, intra-articular (date of injury 01/02/2022) Using a platform walker to help with ambulation. Status: Acute (3) Leg cramps: Problem details: The cause for this is uncertain. Her description of prolonged severe whole leg pain suggests something other than uncomplicated nocturnal leg cramps. May be warranted to get outpatient evaluation for this relatively severe disabling problem. Status: Acute (4) Type 1 diabetes mellitus: Problem details: Recent poor control in part due to steroid injection but may be needing more insulin. Continue to adjust insulin here to optimize diabetes control Status: Acute (5) Hyponatremia: Problem details: Fluid restriction and monitor. Likely due to postoperative status Status: Acute (6) CAD (coronary artery disease): Problem details: NSTEMI 03/2021. Asymptomatic. Hold Plavix while on Xarelto then resume Plavix. Status: Acute (7) Hypothyroidism: Problem details: Continue replacement Status: Acute (8) Recurrent UTI: Problem details: On daily Keflex as an outpatient. Status: Acute (9) Right ankle sprain: Problem details: No evident fracture on exam; may consider x-rays if weight-bearing pain right ankle Status: Acute Plan - Complete 23 hour perioperative antibiotics. - PT/OT consult for education and assistance. - Social work consult for discharge planning - SNF recommended - Prescribed analgesics as needed - Terence seems to be working for her - DVT prophylaxis: Clopidogrel, Xarelto, bilateral knee high Joseph Hose stockings and SCDs - Anticipation is for discharge to SNF once facility is found. - regarding the wrist, continue elevation above the heart, continue digit motion foot, and ice at the antecubital region of the elbow. - at this time, she has no pain at the right ankle with ambulation; if this becomes an issue, consider three x-ray views right ankle.
[2022-01-04 15:00] VITALS: BP 161/68; PULSE 77; PULSE 79; RESP 18; TEMP 36.6; O2SAT 96
[2022-01-04 19:00] VITALS: BP 137/71; PULSE 77; RESP 20; TEMP 36.2; O2SAT 98
--- NOTE | 2022-01-04 19:03 | PC.NURSE ---
VSS AND AFEBRILE. PATIENT STATES PAIN TO LEFT HIP AND WRIST ABSENT WHEN AT REST BUT INCREASES 8/10 WITH MOVEMENT. SWELLING TO LEFT FINGERS SO LEFT ARM ELEVATED ON PILLOW AND ACTIVE ICE TO HIP AND ARM. PATIENT REQUESTED TO HAVE MARTINO STAY IN PLACE OVERNOC. DISCUSSED WITH DR. EVANS AND SHE OKAYED MARTINO TO REMAIN IN PLACE UNTIL TOMORROW. UP WITH A2 ,WALKER AND GAIT BELT TO RECLINER.
[2022-01-04] MEDS: GABAPENTIN 100 MG CAPSULE PO (21:09)
[2022-01-04] MEDS: SODIUM CHLORIDE 0.9 % (FLUSH) 10 ML SYRINGE 5 ML IVF (21:18)
[2022-01-04 23:00] VITALS: PULSE 70; RESP 18; O2SAT 92
[2022-01-05 03:00] VITALS: BP 156/72; PULSE 73; RESP 20; TEMP 36.7; O2SAT 95
[2022-01-05] MEDS: HYDROCODONE-ACETAMIN 5-325 MG 1 TAB PO ×4 (05:30→21:37)
--- NOTE | 2022-01-05 05:36 | PC.NURSE ---
[id number]: Patient friendly and cooperative. Pain well controlled w/PRN [place]. Active ice to L. arm and L. hip. A2, platform walker, GB. Dressing to L. hip C/D/I. Splint to L. wrist intact w/arm elevated. Swelling to L. hand. CMS intact. Taveras patent and draining large amounts of pale yellow urine. Abductor pillow in place.
[2022-01-05] MEDS: LEVOTHYROXINE 125 MCG TABLET PO (06:47)
[2022-01-05] MEDS: LEVOTHYROXINE 50 MCG TABLET PO (06:47)
--- NOTE | 2022-01-05 07:33 | P.EN_ITS ---
Chart Event Note Time Seen by Provider: 07:30 Date Seen: 01/05/22 Chart Event Note: We spoke with synthetic chemist on admission about continued use of the clopidogrel in this setting where she also warrants surgery and subsequent anticoagulation for venous thromboembolism prophylaxis. This patient had 5 coronary artery stents deployed in 03/2021 and warrants clopidogrel therapy for 1 year from the time of deployment. The synthetic chemist recommended that the clopidogrel could be held for a few days only, but then should be restarted even with anticoagulation for VTE prophylaxis. Hence I have restarted the clopidogrel today.
[2022-01-05 07:59] LABS: Sodium* 131 mmol/L (135-149)
[2022-01-05 08:00] VITALS: BP 144/70; PULSE 72; PULSE 73; RESP 20; TEMP 36.6; O2SAT 96
[2022-01-05] MEDS: RIVAROXABAN 10 MG TABLET PO (08:48)
[2022-01-05] MEDS: SENNOSIDES 1 TAB TABLET 2 TAB PO ×2 (08:48→21:20)
[2022-01-05] MEDS: SODIUM CHLORIDE 0.9 % (FLUSH) 10 ML SYRINGE 5 ML IVF ×2 (10:13→21:21)
[2022-01-05] MEDS: CLOPIDOGREL 75 MG TABLET PO (10:13)
--- NOTE | 2022-01-05 11:13 | PM.IMPN1 ---
Progress Note: A&P Assessment and plan (1) Hyponatremia: Problem details: Fluid restriction and monitor. Likely due to postoperative status Status: Acute Assessment and Plan: increasing fluid restriction to 2000L (2) Closed left hip fracture: Problem details: POD 2 bipolar hip arthroplasty. Due to comorbidities including problems with leg cramps and left wrist fracture will need rehab stay before returning home Status: Acute (3) Fracture of wrist: Problem details: Status post closed treatment with manipulation under anesthesia, left distal radius fracture, with dorsal angulation, and minimal ulnar positive position, intra-articular (date of injury 01/02/2022) Using a platform walker to help with ambulation. Status: Acute (4) Type 1 diabetes mellitus: Problem details: Recent poor control in part due to steroid injection but may be needing more insulin. Continue to adjust insulin here to optimize diabetes control Status: Acute (5) CAD (coronary artery disease): Problem details: NSTEMI 03/2021. Asymptomatic. continue plavix and xarelto Status: Acute (6) Hypothyroidism: Problem details: Continue replacement Status: Acute (7) Recurrent UTI: Problem details: On daily Keflex as an outpatient. Status: Acute Plan Plan 01/06 Hyponatremia; improving; corrected sodium due to hyperglycemia; patient requesting to loosen fluid restriction to 2 liters Type 1 DM; increase novolog to 9 units TID and Levemir to 15 units qhs Dispo: awaiting placement Time Spent With Patient Total time spent: 25 Subjective Date Seen: 01/05/22 Interval history: patient doing well hyperglycemic this morning POCT Glucose 300s denies chest pain denies SOB awaiting placement Exam Narrative: Exam Narrative: Gen: No acute distress HEENT: NCAT EOMI MMM CV: RRR normal s1 s2 Lungs: CTAB Abd: Soft, nt. nd Const: Vital Signs, click to edit/add: Vital Signs - 24 hr 01/04/22 12:00 01/04/22 15:00 01/04/22 15:00 Temperature 97.7 F 98 F Pulse Rate [Pulse Oximeter] 77 77 79 Respiratory Rate 18 18 18 Blood Pressure [Ri ght Arm] 149/54 H 161/68 H Pulse Oximetry 97 96 Oxygen Delivery Me thod Room Air Room Air Oxygen Flow Rate 1 01/04/22 19:00 01/04/22 23:00 01/05/22 03:00 Temperature 97.1 F L 98.1 F Pulse Rate [Pulse Oximeter] 77 70 73 Respiratory Rate 20 18 20 Blood Pressure [Ri t Arm] 137/71 156/72 H Pulse Oximetry 98 92 95 Oxygen Delivery Me thod Room Air Room Air Room Air Oxygen Flow Rate 01/05/22 08:00 01/05/22 08:00 Temperature 97.9 F Pulse Rate [Pulse Oximeter] 73 72 Respiratory Rate 20 20 [facility] 144/70 H Pulse Oximetry 96 Oxygen Delivery Me thod Room Air Oxygen Flow Rate 1 Labs Labs: Laboratory Results - last 24 hr 01/05/22 06:50 Sodium 131 L
--- NOTE | 2022-01-05 12:11 | PM.ORPN ---
Subjective Subjective Date Seen: 01/05/22 Principal diagnosis: Status POD1 left hip bipolar hemiarthroplasty, closed reduction left wrist Interval history: Patient reports doing okay. No acute events over night. Pain managed with scheduled /PRN medications and ice. DVT prophylaxis Xarelto, and will be restarted on her Plavix due to cardiac stenting March 2021, bilateral knee high Joseph stockings, and SCDs. Reporting generalized discomfort with the left lower extremity, improved discomfort left wrist, continued discomfort right ankle, and new onset (regarding this hospital visit) of left shoulder discomfort, which is chronic. Recent corticosteroid injection right shoulder. Denies fevers, chills, aches, N/V, CP, SOB/SANCHEZ, tachycardia, or lightheadedness Ortho Exam Narrative Exam Narrative: General: Well-developed, well-nourished, A&Ox 3, no apparent acute distress. Left lower extremity: -Patient appears comfortable in recliner; no apparent acute distress -Alert and oriented times 3 -Operative hip swollen; soft tissues supple; no obvious erythema. Ecchymosis minimal. Warmth appropriate -Surgical dressing clean, dry, intact; no obvious drainage, no erythematous streaking -Bilateral calves are soft but tender, especially the right compared to left. Not tender today with ankle dorsal plantar flexion. No significant swelling, edema, erythema, discoloration, warmth, or palpable cords -2+ DP/PT pulses, intact dermatomes and myotomes distally (5/5 strength) Left Wrist: Notable swelling involving the digits; improved ecchymosis dorsum of the hand at the MCP joints Dorsal-volar short-arm splint in good position, molded appropriately Unable to make full composite fist 2+ radial pulse, pink, warm, appropriate capillary refill digits; intact dermatomes and myotomes distally (radial, ulnar, and median nerve distributions) Right Ankle: No swelling, no obvious ecchymosis or erythema.? Foot/ankle supple Moderately tender to palpation tibiotalar joint line, moderate tender to palpation over the dorsum midfoot No pain with pronation or supination of the foot No pain with resisted plantar or dorsiflexion Stable to anterior drawer - plantar flexion and dorsiflexion Stable to manipulation - eversion and dorsiflexion; inversion and dorsiflexion 2+ Dorsalis Pedis and Posterior Tibial pulses, pink, warm and appropriate capillary refill digits; intact dermatomes and myotomes distally with 5/5 strength dorsal and plantar flexion Left shoulder: No obvious ecchymosis No deformity No swelling Palpable and audible crepitus with range of motion Forward flexion 160?, abduction 140 ? with discomfort Tender to palpation over the small humerus; nontender percussion Const Vital Signs, click to edit/add: Vital Signs - 24 hr 01/04/22 15:00 01/04/22 15:00 01/04/22 19:00 Temperature 98 F 97.1 F L Pulse Rate [Pulse Oximeter] 77 79 77 Respiratory Rate 18 18 20 Blood Pressure [Right Arm] 161/68 H 137/71 Pulse Oximetry 96 98 Oxygen Delivery Method Room Air Room Air Oxygen Flow Rate 1 01/04/22 23:00 01/05/22 03:00 01/05/22 08:00 Temperature 98.1 F Pulse Rate [Pulse Oximeter] 70 73 73 Respiratory Rate 18 20 20 Blood Pressure [Right Arm] 156/72 H Pulse Oximetry 92 95 Oxygen Delivery Method Room Air Room Air Oxygen Flow Rate 01/05/22 08:00 Temperature 97.9 F Pulse Rate [Pulse Oximeter] 72 Respiratory Rate 20 Blood Pressure [Right Arm] 144/70 H Pulse Oximetry 96 Oxygen Delivery Method Room Air Oxygen Flow Rate 1 Assessment and Plan Assessment and plan (1) Closed left hip fracture: Problem details: POD 2 bipolar hip arthroplasty. Due to comorbidities including problems with leg cramps and left wrist fracture will need rehab stay before returning home Status: Acute (2) Hyponatremia: Problem details: Fluid restriction and monitor. Likely due to postoperative status Status: Acute (3) Fracture of wrist: Problem details: Status post closed treatment with manipulation under anesthesia, left distal radius fracture, with dorsal angulation, and minimal ulnar positive position, intra-articular (date of injury 01/02/2022) Using a platform walker to help with ambulation. Status: Acute (4) Type 1 diabetes mellitus: Problem details: Recent poor control in part due to steroid injection but may be needing more insulin. Continue to adjust insulin here to optimize diabetes control Status: Acute (5) CAD (coronary artery disease): Problem details: NSTEMI 03/2021. Asymptomatic. continue plavix and xarelto Status: Acute (6) Hypothyroidism: Problem details: Continue replacement Status: Acute (7) Recurrent UTI: Problem details: On daily Keflex as an outpatient. Status: Acute (8) Right ankle sprain: Problem details: No evident fracture on exam; may consider x-rays if weight-bearing pain right ankle, which she has not experienced to date Status: Acute (9) Chronic left shoulder pain: Problem details: Tender proximally wrist, may consider x-ray to confirm no fracture especially with her needing to use platform walker for ambulation assistance. Status: Acute Plan - Complete 23 hour perioperative antibiotics. - PT/OT consult for education and assistance. - Social work consult for discharge planning - still working on finding placement. - Prescribed analgesics as needed - DVT prophylaxis: Xarelto and Plavix, bilateral knee high Joseph Hose stockings and SCDs - We will monitor how she does with transfers, and using left upper extremity for ambulation assistance using a walker to help decide if left shoulder radiographs is needed. - Anticipation is for discharge to SNF if the patient remains medically stable, pain is controlled, and they are safe with mobilization.
[2022-01-05 12:30] VITALS: BP 137/74; PULSE 79; RESP 20; TEMP 36.6; O2SAT 98
[2022-01-05 15:15] VITALS: BP 161/60; PULSE 78; RESP 18; RESP 20; TEMP 36.4; O2SAT 97
--- NOTE | 2022-01-05 15:56 | PC.SOCIAL ---
Discharge planning- Locating placement for SNF. The following facilities were contacted. 1. Phone call to [facility] in [place]. There is an open bed and initial information was faxed to [phone]. 2. [facility] in [place] called [facility] and informed that they do not have open beds. 3. [facility] in [place]- Pt family states that pt is from [facility] and they were informed Pt has priority to admission to their SNF. Faxed initial information to [facility] at [phone]. Pt's family states they want this placement to be last on the list. 4. [facility] in [place]. Made a phone call to [facility] in Admissions and left a voicemail inquiring on bed availability. Met with pt. and had her sign the IM form. Provided pt with a copy of the form.
[2022-01-05] MEDS: ONDANSETRON 2 MG/ML inj 4 MG IVP (17:10)
--- NOTE | 2022-01-05 17:20 | PC.SOCIAL ---
Social Work - Late entry: On 01/04/22, had initial social work meeting with pt and dtr regarding discharge plan. Both stated they planned on a care home facility placement from this hospital stay. They requested a facility in the following areas in the order listed; 1. [place], 2. [place], 3. [place]. Called [facility] in [place] and left message requesting call back. Called [facility] in [place] and was informed there are no beds available this week.
[2022-01-05 19:00] VITALS: BP 137/69; PULSE 86; RESP 18; TEMP 36.7; O2SAT 99
[2022-01-05] MEDS: GABAPENTIN 100 MG CAPSULE PO (21:20)
[2022-01-05 23:00] VITALS: BP 146/60; PULSE 79; RESP 20; TEMP 36.9; O2SAT 95
[2022-01-06 03:00] VITALS: BP 159/64; PULSE 73; RESP 18; TEMP 36.8; O2SAT 97
--- NOTE | 2022-01-06 05:28 | PC.NURSE ---
[id number]: Patient pleasant and cooperative. A&O x3. No pain at rest, 6/10 with movement. Declined PRN pain medication. Ice to L.hip and L. arm. L.arm elevated to decrease swelling in hand. CMS intact. Dressing to L. hip C/D/I. A2,platform walker, GB. Moving notable better than previous night. Walked x2 in room. Tolerated well. Abductor pillow in place. Compliant with 2000FR. No BM since being admitted. Patient states her normal is every 3 or 4 days. Will address with oncoming shift.
[2022-01-06] MEDS: LEVOTHYROXINE 125 MCG TABLET PO (06:52)
[2022-01-06] MEDS: LEVOTHYROXINE 50 MCG TABLET PO (06:52)
[2022-01-06] MEDS: HYDROCODONE-ACETAMIN 5-325 MG 1 TAB PO ×2 (06:53→12:37)
[2022-01-06 07:00] VITALS: BP 144/70; PULSE 82; RESP 18; TEMP 36.3; O2SAT 98
[2022-01-06] MEDS: SENNOSIDES 1 TAB TABLET 2 TAB PO ×2 (08:25→20:13)
[2022-01-06] MEDS: SODIUM CHLORIDE 0.9 % (FLUSH) 10 ML SYRINGE 5 ML IVF ×2 (08:26→13:42)
[2022-01-06] MEDS: RIVAROXABAN 10 MG TABLET PO (08:26)
[2022-01-06] MEDS: CLOPIDOGREL 75 MG TABLET PO (08:26)
[2022-01-06 11:00] VITALS: BP 110/47; PULSE 76; RESP 18; TEMP 36.4; O2SAT 96
[2022-01-06] MEDS: ONDANSETRON 2 MG/ML inj 4 MG IVP (13:42)
[2022-01-06] MEDS: MAG HYDROX/ALUMINUM HYD/SIMETH 30 ML ORAL.SUSP PO (14:58)
[2022-01-06 15:00] VITALS: BP 123/50; PULSE 97; RESP 18; TEMP 36.6; O2SAT 97
--- NOTE | 2022-01-06 15:09 | PM.ORPN ---
Subjective Subjective Date Seen: 01/06/22 Principal diagnosis: Status POD1 left hip bipolar hemiarthroplasty, closed reduction left wrist Interval history: Patient reports doing okay, head feels a little foggy. No acute events over night. Pain managed with scheduled /PRN medications and ice. DVT prophylaxis Xarelto, and Plavix due to cardiac stenting March 2021, bilateral knee high Joseph stockings, and SCDs. Reporting generalized discomfort with the left lower extremity, mild discomfort left wrist, but improved digit swelling. Continued, mild discomfort right ankle. Her left shoulder, which supposed is chronic, is doing better - able to use platform walker without issue. Denies fevers, chills, aches, N/V, CP, SOB/SANCHEZ, tachycardia, or lightheadedness Ortho Exam Narrative Exam Narrative: General: Well-developed, well-nourished, A&Ox 3, no apparent acute distress. Left lower extremity: -Patient appears comfortable in recliner; no apparent acute distress -Alert and oriented times 3 -Operative hip swollen; soft tissues supple; no obvious erythema. Ecchymosis minimal. Warmth appropriate -Surgical dressing clean, dry, intact; no obvious drainage, no erythematous streaking -Bilateral calves are soft but tender, especially the right compared to left.? Not tender today with ankle dorsal plantar flexion.? No significant swelling, edema, erythema, discoloration, warmth, or palpable cords -2+ DP/PT pulses, intact dermatomes and myotomes distally (5/5 strength) Left Wrist: Improved swelling digits; improved ecchymosis dorsum of the hand at the MCP joints Dorsal-volar short-arm splint in good position, molded appropriately Unable to make full composite fist 2+ radial pulse, pink, warm, appropriate capillary refill digits; intact dermatomes and myotomes distally (radial, ulnar, and median nerve distributions) Right Ankle: No swelling, no obvious ecchymosis or erythema.? Foot/ankle supple moderate tender to palpation over the dorsum midfoot No pain with pronation or supination of the foot No pain with resisted plantar or dorsiflexion Stable to manipulation - eversion and dorsiflexion; inversion and dorsiflexion 2+ Dorsalis Pedis and Posterior Tibial pulses, pink, warm and appropriate capillary refill digits; intact dermatomes and myotomes distally with 5/5 strength dorsal and plantar flexion Left shoulder: No obvious ecchymosis No deformity No swelling Palpable and audible crepitus with range of motion Minimally tender to palpation over the proximal humerus; nontender percussion Const Vital Signs, click to edit/add: Vital Signs - 24 hr 01/05/22 15:15 01/05/22 15:15 01/05/22 19:00 Temperature 97.6 F 98.1 F Pulse Rate [Pulse Oximeter] 78 78 86 Respiratory Rate 18 20 18 Blood Pressure [Right Arm] 161/60 H 137/69 Pulse Oximetry 97 99 Oxygen Delivery Method Room Air Room Air Oxygen Flow Rate 01/05/22 23:00 01/06/22 03:00 01/06/22 07:00 Temperature 98.4 F 98.3 F Pulse Rate [Pulse Oximeter] 79 73 82 Respiratory Rate 20 18 18 Blood Pressure [Right Arm] 146/60 H 159/64 H Pulse Oximetry 95 97 Oxygen Delivery Method Room Air Room Air Oxygen Flow Rate 01/06/22 07:00 01/06/22 11:00 Temperature 97.4 F L 97.6 F Pulse Rate [Pulse Oximeter] 82 76 Respiratory Rate 18 18 Blood Pressure [Right Arm] 144/70 H 110/47 L Pulse Oximetry 98 96 Oxygen Delivery Method Room Air Room Air Oxygen Flow Rate 0 0 Assessment and Plan Assessment and plan (1) Closed left hip fracture: Problem details: POD 3 bipolar hip arthroplasty. Due to comorbidities including problems with leg cramps and left wrist fracture will need rehab stay before returning home Status: Acute (2) Hyponatremia: Problem details: Fluid restriction and monitor. Likely due to postoperative status Status: Acute (3) Fracture of wrist: Problem details: Status post closed treatment with manipulation under anesthesia, left distal radius fracture, with dorsal angulation, and minimal ulnar positive position, intra-articular (date of injury 01/02/2022) Using a platform walker to help with ambulation. Status: Acute (4) Type 1 diabetes mellitus: Problem details: Recent poor control in part due to steroid injection but may be needing more insulin. Continue to adjust insulin here to optimize diabetes control Status: Acute (5) CAD (coronary artery disease): Problem details: NSTEMI 03/2021. Asymptomatic. continue plavix and xarelto Status: Acute (6) Hypothyroidism: Problem details: Continue replacement Status: Acute (7) Recurrent UTI: Problem details: On daily Keflex as an outpatient. Status: Acute (8) Right ankle sprain: Problem details: No evident fracture on exam; may consider x-rays if weight-bearing pain right ankle Status: Acute (9) Chronic left shoulder pain: Problem details: Tender proximal humerus; doing well with platform walker without pain. Status: Acute Plan - Continue work with PT/OT; thompson walk will be today - Social work consult for discharge planning - Prescribed analgesics as needed - DVT prophylaxis: rivaroxaban and plavix, bilateral knee high Joseph Hose stockings and SCDs - Continue left hand digit motion and elevation; ice applied to the antecubital fossa - No acute fracture concern right ankle or left shoulder - Anticipation is for discharge to SNF once placement is found and patient is medically stable, pain is controlled, and they are safe with mobilization.
--- NOTE | 2022-01-06 15:33 | PC.SOCIAL ---
Discharge planning: Called [facility] (main#[phone]) and left message requesting call back with decision on admit. REceived call from Beatriz at [facility] stating she had not received the faxed referral and requested it be resent as a secure email. Secure emailed referral to Beatriz and awaiting call back with decision on admit. Met with pt and dtr to update them. Pt's is hoping [facility] accepts her as it is a better location for her family. offal worker to follow up as needed.
--- NOTE | 2022-01-06 15:58 | P.IMPN_ITS ---
Progress Note: A&P Assessment and plan (1) Closed left hip fracture: Problem details: POD for bipolar hip arthroplasty. Due to comorbidities including problems with leg cramps and left wrist fracture will need rehab stay before returning home Status: Acute (2) Fracture of wrist: Problem details: Status post closed treatment with manipulation under anesthesia, left distal radius fracture, with dorsal angulation, and minimal ulnar positive position, intra-articular (date of injury 01/02/2022) Using a platform walker to help with ambulation. Status: Acute (3) Type 1 diabetes mellitus: Problem details: Recent poor control in part due to steroid injection but may be needing more insulin. Continue to adjust insulin here to optimize diabetes control Status: Acute (4) Leg cramps: Problem details: The cause for this is uncertain. Her description of prolonged severe whole leg pain suggests something other than uncomplicated nocturnal leg cramps. May be warranted to get outpatient evaluation for this relatively severe disabling problem. Status: Acute (5) CAD (coronary artery disease): Problem details: NSTEMI 03/2021. Asymptomatic. continue plavix and xarelto Status: Acute (6) Hypothyroidism: Problem details: Continue replacement Status: Acute (7) Recurrent UTI: Problem details: On daily Keflex as an outpatient. Status: Acute (8) Hyponatremia: Problem details: Discontinue fluid restriction and monitor Status: Acute Plan Patient had marginal urine output today. We will liberalize fluid restriction and follow sodium and urine output. Time Spent With Patient Total time spent: Total time spent today is 40 minutes, 30 minutes in coordination of care discussing with patient and other providers plan of care Subjective Date Seen: 01/06/22 Interval history: 81-year-old female seen in followup of left hip fracture, left wrist fracture, diabetes, hyponatremia, disability. Patient reports that she is still having difficulties will mobility secondary to pain in her disabilities. Now looking for care home facility placement for rehab. Blood sugars remain quite high despite escalating doses of insulin. She has no other concerns today. Exam Narrative: Exam Narrative: She is alert and appears in no distress. Speech is normal. She is oriented to her circumstances. Respirations are clear to auscultation. Cardiovascular: S1, S2, regular rate and rhythm. No murmur gallop or rub. Abdomen: Bowel sounds active. Abdomen is soft without tenderness or mass. Extremities notable for mild edema of the left hand with intact capillary refill and motion and sensation. Lower extremities without significant edema she moves her feet and ankles well with intact peripheral pulses Const: Vital Signs, click to edit/add: Vital Signs - 24 hr 01/05/22 19:00 01/05/22 23:00 01/06/22 03:00 Temperature 98.1 F 98.4 F 98.3 F Pulse Rate [Pulse Oximeter] 86 79 73 Respiratory Rate 18 20 18 Blood Pressure [Ri t Arm] 137/69 146/60 H 159/64 H Pulse Oximetry 99 95 97 Oxygen Delivery Me thod Room Air Room Air Room Air Oxygen Flow Rate 01/06/22 07:00 01/06/22 07:00 01/06/22 11:00 Temperature 97.4 F L 97.6 F Pulse Rate [Pulse Oximeter] 82 82 76 Respiratory Rate 18 18 18 Blood Pressure [Ri ght Arm] 144/70 H 110/47 L Pulse Oximetry 98 96 Oxygen Delivery Me thod Room Air Room Air Oxygen Flow Rate 0 0 Documenting provider has reviewed patient's vital signs: yes
[2022-01-06] MEDS: polyethylene glycoL 3350 17 GM PACK PO (16:59)
[2022-01-06] MEDS: ACETAMINOPHEN 325 MG TABLET 650 MG PO (16:59)
[2022-01-06] MEDS: 0.9 % SODIUM CHLORIDE 500 ML 500 ML IV (19:01)
--- NOTE | 2022-01-06 19:42 | PC.NURSE ---
Pt c/o nausea- zofran given with qeasy patch. No labs ordered today, notified and wanted labs drawn on 01/07 - order entered. Discontinued fluid restriction today - encouraged fluid intake r/t softer pressures/dry. pt c/o head feeling full. seemed to be itchy after norco and symptoms of fullness in head started after this as well. Tylenol given and pt wishing to hold of on norco for now. itching has improved. see chart for BG/insulin admin. low urine output while on fluid restriction. pt verbalized she typically doesn't urinate frequently and only goes a few times/day prior to fall and fx. pt up this evening and encouraged to just sit on toilet, able to void 200cc's darker yellow urine. BP's at this time when sitting at bedside 172/67 and upon standing, BP decreased to 145/71 - Dr. Prado notified and 500cc bolus given. Dtr's present today and very supportive.
[2022-01-06] MEDS: GABAPENTIN 100 MG CAPSULE PO (20:13)
[2022-01-06 20:27] VITALS: BP 145/60; PULSE 74; RESP 16; TEMP 36.4; O2SAT 97
[2022-01-06 23:00] VITALS: PULSE 74; RESP 18
[2022-01-07 00:18] VITALS: BP 165/65; RESP 18; TEMP 36.4; O2SAT 99
[2022-01-07 04:00] VITALS: BP 149/70; PULSE 78; RESP 16; TEMP 36.8; O2SAT 100
[2022-01-07] MEDS: ACETAMINOPHEN 325 MG TABLET 650 MG PO (05:28)
[2022-01-07] MEDS: LEVOTHYROXINE 125 MCG TABLET PO (05:29)
[2022-01-07] MEDS: LEVOTHYROXINE 50 MCG TABLET PO (05:29)
[2022-01-07] MEDS: MAG HYDROX/ALUMINUM HYD/SIMETH 30 ML ORAL.SUSP PO ×2 (05:32→13:01)
--- NOTE | 2022-01-07 05:59 | NUTR.NU ---
Shift Note -: pt pleasant and cooperative, VSS, afebrile, denies pain at rest. Left fingers appear swollen, left wrist and forearm in soft cast, kept elevated and active ice applied. Dressing to left hip CDI, active ice to Sx site. See eMAR for medication administration. Pt satisfied with Tylenol use for pain control at rest, hesitant to take hydrocodone after feeling funny post dose yesterday. Pt may need additional pain control, will address with dayshift RN. No BM, Pt reports no flatus since Sx. Pt ed provided on constipation management strategies.
[2022-01-07 07:00] VITALS: PULSE 59; RESP 16
[2022-01-07 07:22] LABS: Basophils Absolute Auto 0.02 K/uL (0.00-0.30); Basophils Percent Auto 0.3 % (0.0-3.0); Hematocrit 34.6 % (33.0-51.0); Hemoglobin* 11.5 gm/dL (12.0-16.0); Immature Granulocytes Abs Auto 0.03 K/uL (0.00-0.30); Lymphocytes Percent Auto 14.1 % (20-44); Mean Corpuscular HGB Conc 33 gm/dL (32-36); Mean Corpuscular Hemoglobin 32 pg (26-34); Mean Corpuscular Volume 96 fL (80-100); Monocytes Percent Auto 9.2 % (0.0-11.0); Neutrophils Percent Auto 75.9 % (42.0-72.0); Platelet Count* 194 K/uL (140-440); RDW Coefficient of Variation % 15.2 % (11.5-15.5); Red Blood Count 3.62 m/uL (4.00-5.20); White Blood Count* 6.66 K/uL (4.50-11.00)
[2022-01-07 07:23] LABS: Slide Review Reflex No
[2022-01-07 07:38] LABS: Chloride* 99 mmol/L (96-114)
[2022-01-07 07:39] LABS: Potassium* 4.4 mmol/L (3.6-5.1); Sodium* 133 mmol/L (135-149)
[2022-01-07 07:41] LABS: Creatinine* 0.7 mg/dL (0.5-1.5); Est. Creatinine Clearance* 41.45; Estimated Glomerular Filt Rate 86 ml/min
[2022-01-07 07:42] LABS: Blood Urea Nitrogen* 18 mg/dL (7-30); Calcium* 9.3 mg/dL (8.4-10.6); Carbon Dioxide* 30 mmol/L (20-32); Glucose* 216 mg/dL (60-115)
[2022-01-07 08:00] VITALS: BP 120/72; PULSE 59; RESP 16; TEMP 36.2; O2SAT 96
[2022-01-07] MEDS: MAGNESIUM HYDROXIDE 30 ML ORAL.SUSP PO (08:12)
[2022-01-07] MEDS: polyethylene glycoL 3350 17 GM PACK PO (08:44)
[2022-01-07] MEDS: OMEPRAZOLE 20 MG CAPSULE DR PO (08:45)
[2022-01-07] MEDS: CELECOXIB 200 MG CAPSULE PO (08:45)
[2022-01-07] MEDS: SENNOSIDES 1 TAB TABLET 2 TAB PO (08:45)
[2022-01-07] MEDS: RIVAROXABAN 10 MG TABLET PO (08:45)
[2022-01-07] MEDS: SODIUM CHLORIDE 0.9 % (FLUSH) 10 ML SYRINGE 5 ML IVF (08:47)
[2022-01-07 11:11] VITALS: BP 132/53; PULSE 86; RESP 16; TEMP 36.2
[2022-01-07 12:00] VITALS: BP 132/53; PULSE 86; RESP 16; TEMP 36.4; O2SAT 96
--- NOTE | 2022-01-07 12:10 | PM.DS1 ---
DS: Providers Provider Date Seen: 01/07/22 Date of admission: 01/02/22 19:51 Primary care physician: Not a Local Provider Admitting Clinician: Suly Oneal MD Date of Discharge: 01/07/22 DS: Diagnosis Discharge Diagnosis (1) Closed left hip fracture: Status: Acute Problem details: POD for bipolar hip arthroplasty. Due to comorbidities including problems with leg cramps and left wrist fracture will need rehab stay before returning home (2) Fracture of wrist: Status: Acute Problem details: Status post closed treatment with manipulation under anesthesia, left distal radius fracture, with dorsal angulation, and minimal ulnar positive position, intra-articular (date of injury 01/02/2022) Using a platform walker to help with ambulation. (3) Type 1 diabetes mellitus: Status: Acute Problem details: Recent poor control in part due to steroid injection but may be needing more insulin. Continue to adjust insulin here to optimize diabetes control (4) Leg cramps: Status: Acute Problem details: The cause for this is uncertain. Her description of prolonged severe whole leg pain suggests something other than uncomplicated nocturnal leg cramps. May be warranted to get outpatient evaluation for this relatively severe disabling problem. (5) CAD (coronary artery disease): Status: Acute Problem details: NSTEMI 03/2021. Asymptomatic. continue plavix and xarelto (6) Hypothyroidism: Status: Acute Problem details: Continue replacement (7) Recurrent UTI: Status: Acute Problem details: On daily Keflex as an outpatient. (8) Hyponatremia: Status: Acute Problem details: Discontinue fluid restriction and monitor DS: Summary Hospital Course Hospital Course: 81-year-old female fell sustaining a left femoral neck fracture and a left distal radius fracture. She had a bipolar arthroplasty performed and closed reduction and splinting of her distal radius fracture. Postoperatively she has had a slow recovery with return to activity. She initially had quite a bit of trouble with pain control which is much better now. She had some hyponatremia postoperatively. This has gradually gotten better without specific therapy. She has diabetes mellitus. Initially treated as type 2 but not treated as type 1 with insulin. Blood sugars were poorly controlled during hospital stay requiring accelerating doses of insulin. Current insulin dosing is approximately double what she was doing at home. Status at Discharge Functional status at discharge: uses cane/walker Overall status at discharge: patient is progressing back to baseline Time Spent with Patient Time attestation: Total time spent providing and/or coordinating discharge services: 40 minutes Time spent: Greater than 30 minutes Exam Narrative: Exam Narrative: She is alert and appears in no distress. Aspirations are clear to auscultation. Cardiovascular: S1, S2, regular rate and rhythm. Abdomen: Bowel sounds active. Abdomen is soft without tenderness. Splinted wrist on the left. She has still mild edema of the left hand but intact pulses and good capillary refill. No significant edema. Good lower extremity pulses and capillary refill. Good motion in her ankles. Const: Vital Signs, click to edit/add: Vital Signs - 24 hr 01/06/22 15:00 01/06/22 15:00 01/06/22 20:27 Temperature 97.8 F 97.5 F L Pulse Rate Pulse Rate [Pulse Oximeter] 97 97 74 Respiratory Rate 18 18 16 Blood Pressure Blood Pressure [Ri ght Arm] 123/50 L 145/60 H Pulse Oximetry 97 97 Oxygen Delivery Me thod Room Air Room Air Oxygen Flow Rate 0 01/07/22 00:18 01/06/22 23:00 01/07/22 04:00 Temperature 97.6 F 98.3 F Pulse Rate Pulse Rate [Pulse Oximeter] 74 78 Respiratory Rate 18 18 16 Blood Pressure Blood Pressure [Ri ght Arm] 165/65 H 149/70 H Pulse Oximetry 99 100 Oxygen Delivery Me thod Room Air Room Air Oxygen Flow Rate 0 01/07/22 07:00 01/07/22 08:00 01/07/22 11:11 Temperature 97.1 F L 97.1 F L Pulse Rate 86 Pulse Rate [Pulse Oximeter] 59 L 59 L Respiratory Rate 16 16 16 Blood Pressure 132/53 L Blood Pressure [Ri ght Arm] 120/72 Pulse Oximetry 96 Oxygen Delivery Me thod Room Air Oxygen Flow Rate 0 DS: Data Data Completed and Pending Labs on day of discharge: Labs from last 24 hours 01/07/22 01/07/22 06:45 06:45 WBC 6.66 RBC 3.62 L Hgb 11.5 L Hct 34.6 MCV 96 MCH 32 MCHC 33 RDW Coeff of Mehran 15.2 Plt Count 194 Neut % (Auto) 75.9 H Lymph % (Auto) 14.1 L Stanton % (Auto) 9.2 Eos % (Auto) 0.0 Baso % (Auto) 0.3 Neut # (Auto) 5.10 Lymph # (Auto) 0.90 Stanton # (Auto) 0.60 Eos # (Auto) 0.00 Baso # (Auto) 0.02 Abs Immat Gran (auto) 0.03 Sodium 133 L Potassium 4.4 Chloride 99 Carbon Dioxide 30 BUN 18 Creatinine 0.7 Estimated Creat Clear 41.45 Estimated GFR 86 Glucose 216 H Calcium 9.3 Discharge Plan Discharge Disposition: [facility] Date of Admission: 01/02/22 19:51 Attending Provider on Discharge: Sourav Soto Consulting Providers: Flo Cochran Primary Care Provider: Provider,Not a Local Condition: Improved Anticipated Discharge Date/Time: 01/07/22 12:30 Discharge Medications: New sennosides-docusate sodium [Senna-S] 8.6-50 mg tablet 1 - 4 tab-cap PO BID PRN (Reason: constipation) Qty: 60 0RF Rx Instructions: Hold medication if experiencing loose stools. insulin aspart U-100 [Novolog Flexpen U-100 Insulin] 100 unit/mL (3 mL) Insulin Pen 10 unit subcut TIDWM Qty: 15 0RF sennosides [Senna Lax] 8.6 mg Tablet 34.4 mg PO BID PRN (Reason: Constipation) Qty: 100 0RF hydrocodone-acetaminophen 5-325 mg Tablet 1 tab PO Q4H PRNQty: 20 0RF omeprazole 20 mg tablet,delayed release (DR/EC) 20 mg PO DAILY Qty: 30 2RF acetaminophen 325 mg Tablet 650 mg PO Q6H PRNQty: 100 0RF bisacodyl 10 mg Suppository 10 mg VA DAILY PRN (Reason: Constipation) Qty: 5 0RF naproxen 250 mg tablet 250 mg PO DAILY Qty: 14 0RF gabapentin 100 mg capsule 100 mg PO HS Qty: 30 0RF Continued cephalexin [Keflex] 250 mg PO DAILY insulin lispro [Humalog U-100 Insulin] 4 unit subcut TID Rx Instructions: with meals, takes 4-5 U clopidogrel [Plavix] 75 mg tablet 75 mg PO DAILY levothyroxine 175 mcg tablet 175 mcg PO DAILY Label Comments: Take 1 Tablet (175 mcg) by mouth daily. Changed insulin glargine [Lantus Solostar U-100 Insulin] 100 unit/mL (3 mL) insulin pen 20 unit SUBCUT HS Qty: 10 0RF Label Comments: INJECT 9 UNITS SUBCUTANEOUSLY IN THE EVENING Discontinued amlodipine 5 mg tablet 5 mg PO DAILY Label Comments: TAKE ONE TABLET BY MOUTH ONE TIME DAILY Discharge Orders: Discharge Order (Routine); Ordered 01/07/22 Ordered By: Sourav Soto Activity Restrictions/Additional Instructions: physical therapy and occupational therapy to evaluate and treat hip fracture and wrist fracture check blood sugars 4 times a day, before meals and at bedtime check basic metabolic panel and CBC in 5-7 days Activity Level: Activity as Tolerated, Up with assist, Weight Bearing as Tolerated and Use Walker Activity Detail: Wound: ?Do not remove original dressing; we will remove this at first postop visit. Only remove dressing if integrity is in question. ?No immersing wound in water; showering okay; light scrub with your hand and body soap, rinse, dab dry ?Sutures are under the skin, will dissolve; allow surgical glue to come off naturally; do not scrub the wound or apply ointments/lotions ?Call our office with any redness that streaks, excessive drainage from the wound, or wound gapping. Ice/Elevate: ?Ice as needed for swelling and discomfort (cryocuff or ice pack); elevate frequently above the heart TAHIR socks: ?Wear for 1 month, remove for 1 hour 3 times per day ?These are frustrating to take on/off, but are important for blood clot prevention for 1 month after surgery Blood Clot Prevention (DVT): ?Medication: Continue clopidogrel as prescribed by your air traffic controller. Also, Rivaroxaban Driving: ?Do not drive while taking narcotic pain medication ?Anticipate 4-6 weeks no driving if operative leg is driving leg Dental: ?No elective dental work for 6 months post-op. If there is an urgent/emergent dental need, contact our office for an antibiotic prescription. Smoking/Alcohol: ?Do not smoke; do no drink alcohol especially when taking postoperative oral narcotic medication Seek Care from you Primary Care Provider if you experience the following issues in the postoperative phase and beyond: ?Bacterial infections such as: pneumonia, bacterial skin infection (cellulitis), UTI, high fever, chills unrelated to the operative body part - call your primary care physician urgently for treatment in hopes to protect your health and the metal implant. Referrals: ?PT, OT per patient preference - evaluate/treat total hip arthroplasty protocol posterior approach (gait training, ROM, ADLs) Follow up: ?Ortho surgeon follow-up in 6 weeks; repeat radiographs AP pelvis, cross-table lateral operative hip ?[facility]oyle visit in 1 week *If there are any acute concerns regarding your surgery, please call our orthopedic clinic ([phone]) Left Wrist/Arm: - keep splint in place; this will likely stay on for 1 month, as the splint was molded around the wrist reduction in order to hold the fracture in place while it heals. - do not get the splint wet; if it becomes wet, return to clinic for splint removal and cast application -return to clinic if splint becomes loose - frequent elbow, digit motion is safe and encouraged - elevate, ice the front of your elbow above the splint, which will cool the arm, acetaminophen for discomfort - sling for comfort - no lifting beyond coffee cup in weight with the left upper extremity. - platform walker encouraged for ambulation assistance postop hip Discharge Diet: Diabetic Follow Up Appointments: Provider,Not a Local [Primary Care Provider] - [place] PA-C [Physician Civil Engineer Helper] - (First postop visit including wound check once discharged from long term facility.) Forms: [facility] Info Instructions
--- NOTE | 2022-01-07 12:16 | PC.NURSE ---
Patient's condition has improved from yesterday as patient tolerate ambulation with walker and assist of 1. patient pain control has been good, denied any breakthrough pain. Blood glucose monitored at 0730 and 1130 recorded as 237 and 165 respectively. patient discharged to be sent to [facility], first floor at [place]. Paperwork faxed to receiving facility and transportation arranged to be picked up by 1315. Nurse to nurse report to given to the receiving facility at 1152. Vital signs stable and recorded as per chart and due medication administered. Discharge instruction given and all questions related to discharge answered.
--- NOTE | 2022-01-07 12:28 | PC.SOCIAL ---
Discharge plan: Initially received call that [facility] could possibly admit today to short term rehab. However, another call was received at about 10:00 stating they are unable to accept an admission this week. Received call from [facility] stating they are able to accept pt for short term rehab today. Nurse to nurse was completed, discharge information faxed to [facility]. Met with pt and family in room who are aware and agree with this plan.Family is aware pt will go into a semi-private room and that there is currently COVID in the long ter care section of [facility], but not in the transitional care unit where pt will be admitted today. At pt's request, arranged for transportation with [facility] and dtr called with payment. [facility] pharmacy picking technician is scheduled for 1:15 today. Accepting facility si aware and agrees with transportation arrangements and time. Pt has received copy of signed Important Message from Medicare and agrees with discharge as planned. PAS completed # [id number].
--- NOTE | 2022-01-07 13:47 | PC.NURSE ---
Pt d/c'd from unit at [id number]
== END 2022-01-07 13:05 | DRG 522 ==
LOC: ED 19:24 → MEDSURG 20:13
PROVIDERS: Family Medicine; Hospitalist; Orthopaedic Surgery Sports Medicine; Admitting Provider Family Medicine; Emergency Provider Family Medicine; Visit Provider Family Medicine
PROC: 0SRS0J9 Replacement of Left Hip Joint, Femoral Surface with Synthetic Substitute, Cemented, Open Approach (ICD-10-PCS; principal; 2022-01-03 07:30)
DX: S72.002A Fracture of unspecified part of neck of left femur, initial encounter for closed fracture (principal); S52.572A Other intraarticular fracture of lower end of left radius, initial encounter for closed fracture; E87.1 Hypo-osmolality and hyponatremia; S93.401A Sprain of unspecified ligament of right ankle, initial encounter; W01.0XXA Fall on same level from slipping, tripping and stumbling without subsequent striking against object, initial encounter; Y92.480 Sidewalk as the place of occurrence of the external cause; I25.10 Atherosclerotic heart disease of native coronary artery without angina pectoris; Z87.440 Personal history of urinary (tract) infections; I10 Essential (primary) hypertension; E10.9 Type 1 diabetes mellitus without complications; Z79.4 Long term (current) use of insulin; R25.2 Cramp and spasm; I73.00 Raynaud's syndrome without gangrene; K21.9 Gastro-esophageal reflux disease without esophagitis; E03.9 Hypothyroidism, unspecified; D51.0 Vitamin B12 deficiency anemia due to intrinsic factor deficiency; G62.9 Polyneuropathy, unspecified; I25.2 Old myocardial infarction; E10.65 Type 1 diabetes mellitus with hyperglycemia; Z85.72 Personal history of non-Hodgkin lymphomas; G89.29 Other chronic pain; M25.512 Pain in left shoulder
CPT/HCPCS: 1210; 36415; 51798; 64450; 72192; 73100; 73110; 73502; 76942; 80048; 82947; 82962; 83735; 84295; 84443; 84484; 85025; 85027; 87635; 97110; 97116; 97162; 97165; 97530; 97535; 99100; 99140; 99283; 99285; A0425; A0427; A9270; C1776; J0330; J0690; J1170; J2060; J2405; J2704; J3010; J3475; J3490; J7042; J7120